=== PATIENT | male | born 1930 | race Caucasian/White ===

== ENCOUNTER 2018-03-15 12:57 | Observation (INO) | payer MEDICARE, OTHER ==
[~2018-03-15] VITALS: Ht 175.3 cm; Wt 60.4 kg
[~2018-03-15 12:57] MED LIST: ALLOPURINOL100 MG PO; ASCORBIC ACID500 MG PO; ASPIRIN EC81 MG PO; CRANBERRY450 M2 PO; HYDROCHLOROTHIA25 MG PO; LEVOFLOXACIN250 MG PO; LEVOTHYROXINE25 MCG PO; LEVOTHYROXINE75 MCG PO; LISINOPRIL20 MG PO; MIRALAX17 GM PO; MIRTAZAPINE30 MG PO; MULTI-DAY VITA1 EACH PO; NORVASC2.5 MG PO; OMEPRAZOLE20 MG PO; PANTOPRAZOLE SO40 MG PO; SEROQUEL25 MG PO; SIMVASTATIN80 MG PO; SODIUM BICARBO650 MG PO; TAMSULOSIN HCL0.4 MG PO
--- NOTE | 2018-03-15 19:47 | NUR ---
89 - admitted to room 110 via stretcher from ed, drowsy but open eyes easily. 1950 - BC from 2 sites obtained and sent to lab. procedure explained, semicooperative. Admission questionaire done by recalling past information as pt is unable to give information and no family is available in room. Pt comfortable. Pt was admitted wearing only attends as family took her clothes home, no hearing aid, dentures or eyeglassesat this time as this items are not with pt at this time. Bed alarm on. High fall risk precautions in place
--- NOTE | 2018-03-15 20:17 | NUR ---
LR 1L IV BOLUS STARTED
--- NOTE | 2018-03-15 20:31 | NUR ---
16 FR F/C INSERTYED. UROJECT USED, PROCEDURE EXPLAINED, PT SEMICOOPERATIVE DUE TO COGNITIVE CHANGES. INMEDIATE RETURN OF YELLOW URINE OBTAINED
--- NOTE | 2018-03-15 21:32 | NUR ---
ASSESSMENT COMPLETE, PT RESPONDS TO TOUCH BUT IS NOT ANSWERING QUESTIONS. OTHERWISE HE LOOKS COMFORTABLE AND RESPIRATIONS ARE EVEN AND NONLABORED. CALL LIGHT IS WITHIN REACH AND PT IS CLOSE.
--- NOTE | 2018-03-15 22:26 | NUR ---
IN ROOM TO ADMINISTER FLAGYL. PT IS RESTING WITH EYES CLOSED, RESPIRATIONS ARE EVEN AND NONLABORED. CALL LIGHT IS WITHIN REACH.
--- NOTE | 2018-03-15 23:04 | NUR ---
CLARIFIED PULSEOX ORDER WITH DR SCHOFIELD, HE SAID CONTINUOUS PULSEOX IS FINE. WILL UPDATE ORDER AND NOTIFIED R.T.
--- NOTE | 2018-03-15 23:21 | NUR ---
PT IS RESTING WITH EYES CLOSED, RESPIRATIONS ARE EVEN AND NONLABORED. CPOX IS IN PLACE. AND CALL LIGHT IS CLOSE.
[2018-03-16] MEDS ORDERED: OXYBUTYNIN CHLOR5 MG PO (00:26)
--- NOTE | 2018-03-16 01:45 | NUR ---
VITALS AND I&OS DONE AND CHARTED. INFORMED NEY MOSES OF LOW B\P CALL LIGHT IN REACH.
--- NOTE | 2018-03-16 01:50 | NUR ---
NOTIFIED DR SCHOFIELD OF PT'S LOW BP WELL I&O. NEW ORDER RECEVIED FOR 500ML BOLUS OF LR.
--- NOTE | 2018-03-16 02:00 | NUR ---
PT IS RESTING WITH EYES CLOSED, RESPIRATIONS ARE EVEN AND NONLABORED. CALL LIGHT IS WITHIN REACH.
--- NOTE | 2018-03-16 02:13 | NUR ---
LR BOLUS STARTED, ORAL CARE PROVIDED. PT OPENED HIS EYES AND MUMBLED SOMETHING, THEN WENT BACK TO SLEEP. CALL LIGHT IS CLOSE.
--- NOTE | 2018-03-16 04:25 | NUR ---
PT IS RESTING WITH EYES CLOSED, RESPIRATIONS ARE EVEN AND NONLABORED ON CPOX.
--- NOTE | 2018-03-16 04:59 | NUR ---
PT SLEPT THROUGH THE NIGH AND HAD A TOTAL OF 2 L OF FLUID THEN MAINTENANCE FLUID OF LR @ 125. URINE OUTPUT COULD BE BETTER. HE IS NPO AT THIS TIME. SUCTION IS SET UP AT BEDSIDE NEEDED. PT DID NOT RESPOND MUCH OTHER THAN TO DISCOMFORT WHILE FOSTER CATH WAS PLACED BUT HE IS OPENING HIS EYES WHEN TOUCHED ON THE ARM AND SPEAKING LOUDLY. NO EMESIS SINCE ADMISSION. SCD'S AND CPOX IN PLACE. PT CAN SHIFT WEIGHT BUT TURN NEEDED.
--- NOTE | 2018-03-16 06:13 | NUR ---
IN ROOM TO ADMINISTER IV ABX. PT IS EVEN MORE RESPONSIVE. HELD HIS HAND FOR LAB DRAW. CALL LIGHT IS CLOSE.
--- NOTE | 2018-03-16 06:52 | NUR ---
PT'S BP REMAINED SOFT AFTER THE BOLUS. LAST BP WAS 98/38 (53). WILL SEND MSG TO DR SCHOFIELD.
--- NOTE | 2018-03-16 07:43 | NUR ---
RECIEVED CRITICAL LAB VALUE FROM JIMMIE IN LAB. HEMOGLOBIN 6.8 FROM [address] SCHOFIELD AT 0742, ADVISED OF LAB VALUE, NO NEW ORDERS. PT RN AND UTILITY SUPERVISOR BOAT AND PLANT AWARE.
--- NOTE | 2018-03-16 08:00 | NUR ---
RECEIVED REPORT AT 0700, FOUND PT IN BED NOT REALLY RESPONDING TO VOICE COMMANDS. PT IS SOMEWHAT RESPONSIVE TO TOUCH. NO NEW CONERNS NOTED AT THAT TIME.
--- NOTE | 2018-03-16 10:00 | NUR ---
URINE OUTPUT STILL REMAINES INADEQUATE. HG WAS 6.8. PER MD SCHOFIELD 1 UNIT OF BLOOD TO BE GIVEN. WAITING FOR FAMILY TO SIGN COSENT. LLL WAS CORASE, ALL OTHER LOABES ARE CLEAR. PT IS BREATHING SHALLOW THOUGH. ABD RUQ,LUQ,LLQ DID NOT HAVE AUDIBLE BOWEL TONES, RLQ HAD AUDIBLE BOWEL TONES. PT ONLY RESPONDS WITH SOUNDS TO PRESSURE. SBP AT THIS TIME IS 102. WILL CONTINUE TO MONITOR.
--- NOTE | 2018-03-16 10:11 | NUR ---
PATIENT SLEEPING. ASSESSMENT DONE BY USING CHART, NURSING AND REPORT FROM SHELTER. PATIENT HAS CHRONIC DEMENTIA AND IS NOT A RELIABLE SOURCE FOR INFORMATION.
--- NOTE | 2018-03-16 10:50 | NUR ---
PT QUAN Mayen ASLEEP, SON IN . REQUESTED INFO OF HOW PT DID THROUGH THE NIGHT. SHARED THIS INFO WITH COMBINATION WELDER APPRENTICE KENN, SHE WILL SHARE INFO WITH SON. SHE IS SCHEDULED TO GIVE BLOOD TO PT. SON WAS PLEASED, EXTENDED A BLESSING, WILL FOLLOW NEEDED
--- NOTE | 2018-03-16 12:00 | NUR ---
BLOOD INFUSION STILL RUNNING. V/S ARE STABLE. NO CHANGES SO FAR.
[2018-03-16] MEDS ORDERED: ZOCOR40 MG PO (13:00)
[2018-03-16] MEDS ORDERED: MILK OF MA400 MG/5 M PO (13:01)
[2018-03-16] MEDS ORDERED: LIDODERM1 EACH TD (13:03)
[2018-03-16] MEDS ORDERED: SYNTHROID25 MCG PO (13:04)
[2018-03-16] MEDS ORDERED: HYDROCHLOROTH12.5 MG PO (13:05)
[2018-03-16] MEDS ORDERED: NEURONTIN300 MG PO (13:06)
[2018-03-16] MEDS ORDERED: FLEET ENEMA133 ML PR (13:08)
[2018-03-16] MEDS ORDERED: DULCOLAX10 MG PR (13:09)
[2018-03-16] MEDS ORDERED: TYLENOL325 MG PO ×2 (13:11)
--- NOTE | 2018-03-16 13:12 | NUR ---
MED REC COMPLETE WITH CELESTE COLEMAN
--- NOTE | 2018-03-16 14:00 | NUR ---
BLOOD ALMOST DONE. NO NEW ISSUES NOTED . PT NOW RESPONDS TO VOICE AND IS ABLE TO UTTER SOME WORDS AT TIMES.
--- NOTE | 2018-03-16 14:00 | NUR ---
PT IS DOING VERY WELL. PT AMBULATED IN HALLWAY X2, PT IS TOLERATING REGULAR DIET, PT IS POSITIVE FOR BOWEL TONES, PT ALSO IS POSITIVE FOR FLATUS. PAIN SEEMS CONTROLLED. PT IS SALINE LOCKED. NO NEW CONCERNS AT THIS TIME.
--- NOTE | 2018-03-16 16:00 | NUR ---
THERE HAS BEEN NO CHANGES FOR THIS PT.
--- NOTE | 2018-03-16 18:03 | NUR ---
PT NEEDED 12 UNIT OF BLOOD CELLS DUE TO A HG OF 6.8. HG NOW IS 8.5. WE WILL CONTINUE TO MONITOR OVER NIGHT. PT AT FIRST WAS NOT REALLY RESPONDING TO VOICE COMMANDS. AT THIS TIME PT IS DOING SO. FAMILY HAS BEEN AT BEDSIDE ALL DAY. LAST V/S WERE BETTER BLOOD PRESSURE KELLY. URINE OUTPUT STILL IS INADEQUATE. WILL CONTINUE TO MONITOR.
--- NOTE | 2018-03-16 19:15 | NUR ---
BEDSIDE REPORT RECEIVED FROM OFFGOING RN. PT RESTING WITH EYES CLOSED, DOES NOT WAKE DURING REPORT. CALL LIGHT WITHIN REACH. BED ALARM ACTIVE. ROOM IN VIEW OF RN STATION.
--- NOTE | 2018-03-16 21:30 | NUR ---
CHARGE NURSE ROUNDING NOTE: AWAKENS EASILY, ASPIRATION AND FALL PRECAUTIONS INPLACE, CONTINUES ON NPO STATUS, MOUTH CARE DONE. F/C PATENT. TURNED, HEEL PROTECTORS, CPOX IN PLACE. BED ALARM ON
--- NOTE | 2018-03-16 22:16 | NUR ---
PT ASSESSMENT COMPLETE. PT UNABLE TO ANSWER QUESTIONS WITH INTELLIGBLE ANSWERS. PT MUMBLES THROUGHOUT ASSESSMENT. PT DOES NOT DISPLAY ANY NONVERBAL INDICATORS OF PAIN. LUNG SOUNDS DIMINISHED/CLEAR THROUGHOUT. SAO2 90% CPOX IN PLACE, RA. NO COUGH NOTED. BT'S ACTIVE. ABD MILDLY DISTENDED. PT DOES NOT DISPLAY ANY NON VERBAL INDICATORS OF ABD TENDERNESS UPON PALPATION. PT HAS NON BLANCHABE AREAS OF REDNESS X 2 TO L BUTTOCK. BARRIER CREAM APPLIED. NEW ATTENDS PLACED. PT REPOSITIONED AND PROPPED WITH PILLOWS. FOSTER CATH DRAINING CLEAR YELLOW URINE. BED ALARM ACTIVE. ROOM IN VIEW OF RN STATION. CALL LIGHT WITHIN REACH.
--- NOTE | 2018-03-17 00:32 | NUR ---
PT RESTING IN BED WITH EYES CLOSED. RESPIRATIONS EVEN AND UNLABORED. SAO2 94%. PT MUMBLING TO HIMSELF. RT MOVED SAO2 MONITOR TO PT FOREHEAD AFTER PT REMOVED PROBE FROM FINGER. ROOM IN VIEW OF RN STATION. BED ALARM ACTIVE. CALL LIGHT WITHIN REACH.
--- NOTE | 2018-03-17 04:10 | NUR ---
PT ASSESSMENT COMPLETE. PT DISORIENTED TO ALL. PT MUMBLING THROUGHOUT ASSESSMENT, BUT SPEECH IS UNINTELLIGBLE. LUNG SOUNDS CLEAR/DIM THROUGHOUT. SAO2 89-94% ON RA. CPOX IN PLACE. NO COUGH NOTED DURING ASSESSMENT. ABDOMEN MILDLY DISTENDED. PT DISPLAYS NO NONVERBAL S/SX OF ABD TENDERNESS UPON PALPATION. BT'S ACTIVE. PT TURNED AND REPOSITIONED WITH PILLOWS. BARRIER CREAM REAPPLIED TO BUTTOCKS. FOSTER CATH DRAINING CLEAR YELLOW URINE. CALL LIGHT WITHIN PT REACH. ROOM IN VIEW OF RN STATION.
--- NOTE | 2018-03-17 04:10 | NUR ---
PATIENT HAS BEEN RESTING WELL WVE BEEN Q2T HIM. CALL LIGHT IN REACH
--- NOTE | 2018-03-17 05:24 | NUR ---
PT RESTING WELL THIS SHIFT. NO NONVERBAL S/SX OF PAIN PRESENT DURING SHIFT. PT MUMBLING DURING ASSESSMENTS, SPEECH IS UNINTELLIGBLE. LUNG SOUNDS HAVE BEEN CLEAR/DIMINISHED. NO COUGH PRESENT. CPOX IN PLACE. RA. RESPIRATIONS SHALLOW. ABD MILDLY DISTENDED. BT'S ACTIVE. NO NONVERBAL S/SX OF ABD TENDERNESS NOTED. FOSTER CATH DRAINING QS YELLOW URINE. NON BLANCHABLE REDNESS PRESENT X 2 TO L BUTTOCK. TURN Q 2. APPLY BARRIER CREAM. ATTENDS IN PLACE. LR @ 125. SIRI, JOSÉEPCARMEN, FLAGYL.
--- NOTE | 2018-03-17 08:00 | NUR ---
RECEIVED REPORT AT 0700, FOUND PT IN BED SLEEPING. A BED BATH TO BE GIVEN TODAY. NO NEW CONCERNS SO FAR.
--- NOTE | 2018-03-17 10:02 | NUR ---
HR IS IN THE UPPER 40'S-MID 50'S. ALL LOBES ARE CLEAR AT THIS TIME. PT IS STILL TAKING VERY SHALLOW BREATHS AT THIS TIME. URINE OUTPUT IS BETTER. PT AT THIS TIME IS ONLY UTTERING SOUNDS AND NOT WORDS. IV SITE IS WDL. O2 SATS 88-92%. NO NEW CONCERNS AT THIS TIME.
--- NOTE | 2018-03-17 12:04 | NUR ---
BED BATH WAS GIVEN AND LININES WERE CHANGED. PT AT THIS TIME IS MORE ALERT, KEEPING HIS EYES OPEN AT A CONTINUES BASIS. FAMILY AT BEDSIDE.
--- NOTE | 2018-03-17 14:00 | NUR ---
ALL LOBES ARE CLEAR BUT DIMINISHED IN THE BASES. PT IS NOW ABLE TO HOLD HIS OWN MOUTH SWAB. PT IS STILL KEEPING HIS EYES OPEN FOR EXTENDED PERIODS OF TIME. ABD SOUNDS ARE PRESENT. PT HAS BEEN TURNED SEVERAL TIMES THIS SHIFT SO FAR. PT IS STILL NOT ABLE TO FOLLOW COMMANDS. NO NEW CONCERNS NOTED AT THIS TIME.
--- NOTE | 2018-03-17 15:43 | NUR ---
THE NURSE AND I GAVE HIM A BED BATH AND CHANGED HIS BED LINENS.
--- NOTE | 2018-03-17 17:12 | NUR ---
THROUGHOUT THE DAY THE PT MENTAL STATUS SEEMED TO IMPROVE SOME. PT AT THIS TIME KEEPS HIS EYES OPEN SPONTANEOUSLY. PT HOWEVER IS STILL NOT ABLE TO FOLLOW COMMANDS. PT OVERALL SEEMS CONTENT. ALL LOBES ARE CLEAR BUT DIMNISHED IN THE BASES. ABD SOUNDS ARE PRESENT. URINE OUTPUT HAS NOT INCREASED THIS SHIFT PROGRESSED. SON IS AT BEDSIDE. NO NEW CONCERNS AT THIS TIME, WILL CONTINUE TO MONITOR.
--- NOTE | 2018-03-17 19:20 | NUR ---
BEDSIDE REPORT RECEIVED FROM OFFGOING RN. PT RESTING IN BED AWAKE. UNABLE TO PARTICIPATE IN REPORT. CALL LIGHT WITHIN REACH. ROOM IN VIEW OF RN STATION.
--- NOTE | 2018-03-17 23:43 | NUR ---
PT RESTING IN BED WITH EYES OPEN. PT DISORIENTED TO ALL. SPEECH REMAINS INCOMPREHENSIBLE. PT CHUCKLES WHEN ASKED IF HE IS HAVING PAIN. NO NON VERBAL S/SX OF PAIN PRESENT. LUNG SOUNDS CLEAR, DIMINISHED IN THE BASES. PT COUGHING INTERMITTENTLY THROUGHOUT ASSESSMENT. BOWEL TONES ACTIVE. FOSTER CATH DRAINING CLEAR YELLOW URINE. ALLEVYN FOAM TO L BUTTOCK, ALLEVYN FOAM TO R UPPER ARM. PT REPOSITIONED AND PROPPED WITH PILLOWS. PT CALL LIGHT WITHIN REACH, ROOM IN VIEW OF RN STATION.
--- NOTE | 2018-03-17 23:50 | NUR ---
V/S AND I&O DONE AND CHARTED. RN ADAMS AND I CLEANED/ CHANGED ATTENDS AND FOSTER CATH CARE DONE. REPOSITIONED PATIENT LYING ON RIGHT SIDE. CALL LIGHT AND SIDE TABLE WITHIN REACH.
--- NOTE | 2018-03-18 03:28 | NUR ---
PT RESTING IN BED WITH EYES OPEN. PT DISORIENTED X 4. MUMBLES WORDS, OCCASIONALLY ONE WORD IS CLEAR. PT CHUCKLES WHEN ASKED QUESTIONS, DOES NOT ANSWER APPROPRIATELY. LUNG SOUNDS CLEAR AT THIS TIME ON RA. NO COUGH NOTED DURING ASSESSMENT. ABD MILDLY DISTENDED, NO S/SX OF ABD TENDERNEESS. FOSTER DRAINING CLEAR YELLOW URINE. ATTENDS IN PLACE. CALL LIGHT WITHIN PT REACH. ROOM IN VIEW OF RN STATION.
--- NOTE | 2018-03-18 04:33 | NUR ---
PT REPOSITIONED AND PROPPED WITH PILLOWS. PT MUMBLING, WITH OCCASIONAL COMPREHENDABLE WORD. CALL LIGHT IN REACH, ROOM IN VIEW OF RN STATION.
--- NOTE | 2018-03-18 06:20 | NUR ---
PT AWAKE OFF AND ON THIS SHIFT. DISORIENTED TO ALL. SPEECH MOSTLY INCOMPREHENSIBLE, ALTHOUGH HAVING PERIODS OF 1-2 WORDS THAT MAKE SENSE. LUNG SOUNDS CLEAR, NO COUGHING NOTED. ABD MILDLY DISTENDED, NO S/SX OF ABD TENDERNESS. FOSTER CATH DRAINING CLEAR YELLOW URINE, QS. NO BM SINCE 03/15/18. ALLEVYN FOAM TO STAGE 1 PRESSURE ULCERS ON L BUTTOCK. ALLEVYN FOAM TO SCABBING ON RUE. LR @ 125. NPO[address] ST CONSULT MONDAY.
--- NOTE | 2018-03-18 09:47 | NUR ---
turned patient to right side with TAMMY Garza. tolerated well. VS taken. stable. ivf pump volume cleared.
--- NOTE | 2018-03-18 11:53 | NUR ---
AT BEDSIDE GAVE INSTRUCTIONS TO MEALS AND PRECAUTIONS ORDERED PLACED PER
--- NOTE | 2018-03-18 13:50 | NUR ---
patient sat up in bed after working with physical therapy. ate 75-90% of meal. no coughing or choking during entire meal. this RN assisted patient with feeding. new IVF bag hung now. magnesium rider infusing now as well.
--- NOTE | 2018-03-18 17:12 | NUR ---
pt resting with eyes closed now. resp rate and rhythm even.
--- NOTE | 2018-03-18 17:51 | NUR ---
dinner arrived at patients bedside, patient did not want to eat the food, he went back to sleep will try again soon
--- NOTE | 2018-03-18 17:54 | NUR ---
ADVANCED DIET TO DYSPHAGIA PUREED WITH NECTAR THICK LIQUIDS. ATE 75% OF LUNCH. TOLERATED WELL. NEEDS TO BE FULLY AWAKE TO EAT. ASPIRATION PERCAUTIONS. 2PA/TURN Q2H. LR @ 125. ZITHROMAX AND ROCEPHIN. FOSTER CATHETER. ALLEVYN ON COCCYX.
--- NOTE | 2018-03-18 19:05 | NUR ---
BEDSIDE REPORT RECEIVED FROM OFFGOING RN. PT RESTING IN BED. CALL LIGHT IN REACH, ROOM IN VIEW OF RN STATION.
--- NOTE | 2018-03-18 22:55 | NUR ---
PT ASSESSMENT COMPLETE. PT DISORIENTED TO ALL. SPEECH IS MUMBLED, UNINTELLIGIBLE. LUNG SOUNDS CLEAR THROUGHOUT. ABD FIRM TO PALPATION NO NONVERBAL S/SX OF ABD TENDERNESS. BT'S ACTIVE. ALLEVYN FOAM TO FERCHOE L BUTTOCK. FOSTER CATH DRAINING CLEAR YELLOW URINE. ATTENDS IN PLACE. PT WITH CALL LIGHT IN REACH, ROOM IN VIEW OF RN STATION.
--- NOTE | 2018-03-18 23:22 | NUR ---
V/S AND I&O DONE AND CHARTED. REPOSITIONED PATIENT. PATIENT HAD A SIP OF THICKENED APPLE JUICE AND THICKENED WATER.
--- NOTE | 2018-03-19 01:30 | NUR ---
PT RESTING IN BED WITH EYES CLOSED. PT APPEARS TO BE SLEEPING. ROOM IN VIEW OF RN STATION. CALL LIGHT WITHIN REACH.
--- NOTE | 2018-03-19 03:30 | NUR ---
PT ASSESSMENT COMPLETE. NO NONVERBAL S/SX OF PAIN PRESENT. PT DISORIENT TO ALL. LUNG SOUNDS CLEAR THROUGHOUT. BT'S ACTIVE. ABD FIRM. NO S/SX OF ABD TENDERNESS. FOSTER DRAINING CLEAR YELLOW URINE. ROOM IN VIEW OF RN STATION. CALL LIGHT WITHIN REACH.
--- NOTE | 2018-03-19 06:41 | NUR ---
GUNJAN ATTEMPTS TO WAKE PT FOR ADMINISTRATION OF THYROID MEDICATION. PT REMAINS DROWSY, DOES NOT OPEN EYES. MEDICATION NOT ADMINISTERED AT THIS TIME DUE TO PT'S INABILITY TO WAKE UP AND TAKE BITE OF APPLE SAUCE. NO S/SX OF DISTRESS NOTED, RESPIRATIONS EVEN AND UNLABORED. ROOM IN VIEW OF RN STATION. CALL LIGHT IN REACH.
--- NOTE | 2018-03-19 09:45 | NUR ---
PT VERY DROWSY THIS AM, DIFFICULT TO AROUSE. PT OPENING EYES BUT FALLS BACK ASLEEP EASILY. NOT ABLE TO RESPOND VERBALLY ALTHOUGH PT REACHED UP AND ATTEMPTED TO PUSH SPOON AWAY WHILE THIS RN TRIED TO ADMINISTER MEDS. PT DID TAKE ALL OF PILLS ONE AT A TIME WITH APPLESAUCE. TOOK ENCOURAGEMENT TO SWALLOW. NO COUGHING NOTED. PT FULL ASSIST WITH THIS RN AND EVA Schaeffer. TO SIT PT UP IN BED AND TRANSFER HIM TO RECLINER. PT SITTING UP IN RECLINER. IV INFUSING WNL. CALL LIGHT WITHIN REACH. FEET ELEVATED, GIVEN WARM BLANKET.
[2018-03-19] MEDS ORDERED: AMLODIPINE BES2.5 MG PO (11:50)
[2018-03-19] MEDS ORDERED: AMOXICILLIN500 MG PO (11:51)
[2018-03-19] MEDS ORDERED: ZOCOR40 MG PO (11:51)
--- NOTE | 2018-03-19 12:04 | NUR ---
SPOKE WITH [facility] TO UPDATE ON PROBABLE DISCHARGE TOMORROW RETURNING TO FACILITY. THEY REQUEST CLINICALS. FAXED CLINICALS TO THEM, FAX CONFIRMATION RECEIVED.
--- NOTE | 2018-03-19 12:15 | NUR ---
PT SITTING UP IN RECLINER. REMAINS FOR DROWSY, DIFFICULT TO AWAKEN. SON AT BEDSIDE STATES HE WOULD ATTEMPT TO ASSIST PT TO EAT LUNCH. CALL LIGHT WITHIN REACH.
--- NOTE | 2018-03-19 12:23 | NUR ---
PATIENT HAS BEEN VERY TIRED TO DAY, UP IN HIS CAHIR, SON IS IN THE ROOM WITH HIM. REFUSED BREAKFAST, sON SAID HE WOULD TRY TO FEED HIM lUNCH, STILL VERY SLEEPY. CALL LIGHT IN REACH.
--- NOTE | 2018-03-19 12:55 | NUR ---
PT ASLEEP IN CHAIR-DIFFICULT TO AROUSE. VISITED WITH SON, HE SHARED WITH ME THAT THIS HAS BEEN A LONG JOURNEY CARING FOR HIS FATHER. "ITS JUST SOMETHING THAT I HAVE TO DO", SON STATED AND DID NOT SHY AWAY FROM CARING FOR HIS DAD. GOT SON SOMETHING TO DRINK-HE THANKED ME AND I EXTENDED A BLESSING. WILL FOLLOW NEEDED
--- NOTE | 2018-03-19 15:16 | NUR ---
NOTED MULTIPLE 30 SEC APNEIC PERIODS WHILE PT SLEEPING. PT AWOKE SLIGHTLY TO GENTLE TOUCH AND VOICE. WOULD NOT OPEN EYES. PT DID RESPOND VERBALLY AT THIS TIME ALTHOUGH VERBAL RESPONSE WAS INCOMPREHENSIBLE. DR. ANDRADE AWARE.
--- NOTE | 2018-03-19 17:41 | NUR ---
Patient was in his chair. took 3 assist to beverley him to bed patient was in cont. call light in reach .
--- NOTE | 2018-03-19 17:45 | NUR ---
PT 3PA WITH JESSE TRANSFER BACK TO BED. REMAINS VERY DROWSY, RESPONDS VERY LITTLE EVEN TO MOVEMENT BACK TO BED. PT INCONTINENT OF URINE. ATTENDS CHANGED ONCE IN BED. PT REFUSES TO TAKE BITES OF FOOD OR DRINKS WHEN OFFERED. TAKING PILLS CRUSHED IN BITES OF APPLESAUCE WITH MUCH ENCOURAGMENT. CURRENTLY IN BED SLEEPING. SON AT BEDSIDE. IV INFUSING WNL.
--- NOTE | 2018-03-19 19:20 | NUR ---
BEDSIDE REPORT RECEIVED FROM OFFGOING RN. PT DOES NOT WAKE DURING REPORT. CALL LIGHT IN REACH. ROOM IN VIEW OF RN STATION.
--- NOTE | 2018-03-19 21:28 | NUR ---
PT ASSESSMENT COMPLETE. PT RESTING IN BED WITH EYES CLOSED. PT RESPONDS UNTILLEGIBLY TO NAME BEING CALLED, BUT DOES NOT OPEN HIS EYES WHEN PROMTED. PT REMAINS DROWSY THROUGHOUT THE ASSESSMENT. NO NONVERBAL S/SX OF PAIN PRESENT. LUNG SOUNDS CLEAR THROUGHOUT. BT'S ACTIVE. ABD FIRM TO PALPATION. NO S/SX OF ABD TENDERNESS PRESENT. ALLEVYN FOAM TO R UPPER ARM AND TO L BUTTOCK. ATTENDS IN PLACE FOR INCONTINENCE. ROOM IN VIEW OF RN STATION, CALL LIGHT IN REACH.
--- NOTE | 2018-03-20 00:30 | NUR ---
PT RESTING IN BED WITH EYES CLOSED. RESPIRATIONS EVEN AND UNLABORED. PT DOES NOT WAKE WHILE INDUSTRIAL SALES MANAGER IN ROOM. PT APPEARS TO BE SLEEPING. CALL LIGHT IN REACH, ROOM IN VIEW OF RN STATION.
--- NOTE | 2018-03-20 01:10 | NUR ---
2 PA CHANGED SOAKED ATTENDS AND REPOSITIONED.
--- NOTE | 2018-03-20 03:00 | NUR ---
PT ASSESSMENT COMPLETE. PT DOES NOT WAKE DURING ASSESSMENT. PT MUMBLES SLIGHTLY WHEN ASKED QUESTIONS BUT NEVER OPENS HIS EYES. NO NONVERBAL S/SX OF PAIN PRESENT. BT'S ACTIVE. ABD FIRM. NO S/SX OF ABD TENDERNESS. ALLEVYN FOAM TO L BUTTOCK AND R UPPER ARM. PT'S FORESKIN NOTED TO BE INFLAMED, WILL NOT RETRACT OVER THE HEAD OF THE PENIS. ATTENDS IN PLACE FOR INCONTINENCE, CHANGED AT THIS TIME. PT REPOSITIONED WITH PILLOWS. CALL LIGHT IN REACH. ROOMIN VIEW OF RN STATION.
--- NOTE | 2018-03-20 06:12 | NUR ---
PT OBTUNDED THROUGHOUT SHIFT. BRIEFLY MUMBLES INCOMPREHENSIBLE SPEECH WHEN ASKED QUESTIONS, UNABLE TO OPEN EYES. NO S/SX OF PAIN. BT'S ACTIVE. ABD FIRM TO TOUCH. ATTENDS IN PLACE FOR INCONTINENCE. TURN Q 2. ALLEVYN FOAM TO L BUTTOCK AND R UPPER ARM. FORESKIN NOTED TO BE RETRACTED, SWOLLEN. UNABLE TO REPLACE FORESKIN TO PROPER POSITION. LR @ 125. DYSPHAGIA-PUREED DIET WITH NECTAR THICK LIQUIDS. ST EVAL YESTERDAY. 2PA FOR BED MOBILITY.
--- NOTE | 2018-03-20 06:35 | NUR ---
scheduled levothyroid adminsitered. pt noted to be more alert than was throught the night. pt eyes are open. pt mumbles and chuckles in response to questions as was his previous response. call light in reach. room in view of rn station.
--- NOTE | 2018-03-20 11:32 | NUR ---
report called to nurse at [facility]. questions answered.
--- NOTE | 2018-03-20 11:47 | NUR ---
PT'S SON IN RM. PT ASLEEP, HAD GOOD VISIT WITH SON. HE IS PREPARING TO TAKE PT BACK TO [facility]. HE DOESN'T SEE ANY CHANGE FROM YESTERDAY. HE SAID, "I GUESS HE CAN SLEEP WELL THERE HE IS HERE." HE THANKED ME FOR COMING IN, EXTENDED A BLESSING AND WILL FOLLOW NEEDED
== END 2018-03-20 11:05 ==
LOC: ED 12:57 → MS 12:58
PROVIDERS: ADMIT Student in an Organized Health Care Education/Training Program
DX: K55.049 Acute infarction of large intestine, extent unspecified (principal); J18.9 Pneumonia, unspecified organism; N17.9 Acute kidney failure, unspecified; D62 Acute posthemorrhagic anemia; F03.90 Unspecified dementia, unspecified severity, without behavioral disturbance, psychotic disturbance, mood disturbance, and anxiety; E78.5 Hyperlipidemia, unspecified; I25.2 Old myocardial infarction; E03.9 Hypothyroidism, unspecified; I12.9 Hypertensive chronic kidney disease with stage 1 through stage 4 chronic kidney disease, or unspecified chronic kidney disease; N18.3 Chronic kidney disease, stage 3 (moderate); R39.15 Urgency of urination; R13.12 Dysphagia, oropharyngeal phase; N40.1 Benign prostatic hyperplasia with lower urinary tract symptoms; G89.4 Chronic pain syndrome; K64.9 Unspecified hemorrhoids; E79.0 Hyperuricemia without signs of inflammatory arthritis and tophaceous disease; H54.7 Unspecified visual loss; H91.90 Unspecified hearing loss, unspecified ear; Z66 Do not resuscitate; Z87.891 Personal history of nicotine dependence; Z86.73 Personal history of transient ischemic attack (TIA), and cerebral infarction without residual deficits; Z79.899 Other long term (current) drug therapy; Z88.8 Allergy status to other drugs, medicaments and biological substances
CPT/HCPCS: 36415; 36430; 71045; 74176; 80048; 80053; 80202; 81001; 83690; 83735; 84100; 85025; 86850; 86900; 86901; 86920; 87040; 92610; 94762; 96361; 96365; 96366; 96367; 96368; 96372; 96375; 96376; 97110; 97163; 97530; 99285-25; C9113; G0378; J0131; J0456; J0692; J0696; J1650; J2405; J3370; J3475; J3480; J7040; J7060; J7120; P9016

== ENCOUNTER 2018-04-27 05:14 | Observation (INO) | payer MEDICARE, OTHER ==
[~2018-04-27] VITALS: Ht 175.3 cm; Wt 60.1 kg
[~2018-04-27 05:14] MED LIST changes: +AMLODIPINE BES2.5 MG PO; +AMOXICILLIN500 MG PO; +DULCOLAX10 MG PR; +FLEET ENEMA133 ML PR; +HYDROCHLOROTH12.5 MG PO; +LIDODERM1 EACH TD; +MILK OF MA400 MG/5 M PO; +NEURONTIN300 MG PO; +OXYBUTYNIN CHLOR5 MG PO; +SYNTHROID25 MCG PO; +TYLENOL325 MG PO; +ZOCOR40 MG PO
--- NOTE | 2018-04-27 10:00 | NUR ---
PT ARRIVED TO FLOOR AT 0935, TRANSFERED TO HOSPITAL BED. PT VERY TETLIN, DIFFICULT TO ASSESS. PT LUNG SOUNDS WITH CRACKLES THROUGHOUT, OCCASIONAL COUGH. BOWEL TONES ACTIVE, ABD DISTENDED AND FIRM, FLEET ENEMA GIVEN. PULSES PALPABLE, EXTREMITIES WARM. PT COMBATIVE WITH CARES. PT WITH LARGE BM, PERICARE PERFORMED. BED ALARM ON. IV FLUIDS INFUSING.
[2018-04-27] MEDS ORDERED: GABAPENTIN100 MG PO (12:36)
--- NOTE | 2018-04-27 12:40 | NUR ---
PT WITH MEDIUM BM, PERICARE PERFORMED. LUNCH AT BEDSIDE, FEEDER, ATE ABOUT 25%, NO S/S OF ASPIRATION. IV FLUIDS INFUSING. BED ALARM ON.
[2018-04-27] MEDS ORDERED: IPRAT-ALBUT 0.5-3 ML INH (12:43)
--- NOTE | 2018-04-27 12:52 | NUR ---
MED REC COMPLETE WITH CELESTE COLEMAN
--- NOTE | 2018-04-27 13:39 | NUR ---
PATIENT HAS SEVERE DEMENTIA AND DOES NOT ANSWER QUESTIONS. ASSESSMENT THROUGH STAFF, [place] STAFF AND CALLED AND SPOKE WITH SON CARLO QUINONES [phone]. PATIENT WILL BE RETURNING TO FACILITY AT DISCHARGE.
--- NOTE | 2018-04-27 14:00 | NUR ---
PT RESTINGI N BED. PT ON ROOM AIR, LUNG SOUNDS COARSE. IV FLUIDS INFUSING LR AT 200 ML/HR. PT WITH SMALL APPETITE, ATE 25%, REQUIRES ASSISTANCE WITH EATING. NO ACUTE CHANGES. BED ALARM ON.
--- NOTE | 2018-04-27 15:16 | NUR ---
PT WITH SMALL AMOUNT OF LIQUID STOOL. DIGITALLY DISEMPACTED, MEDIUM SIZE OF FORMED STOOL REMOVED. FLEET ENEMA GIVEN PER ORDER. PT RESTING IN BED, BED ALARM ON.
--- NOTE | 2018-04-27 17:03 | EKG ---
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 rate has increased BY 44 BPM Nonspecific T wave abnormality no longer evident in Inferior leads T wave inversion less evident in Lateral leads Confirmed by BELLA SCHOFIELD DO ([id number]) on 04/27/2018 5:02:58 PM Electronically Signed By: BELLA SCHOFIELD DO 04/27/18 1703 PATIENT NAME: PIERRE QUINONES Electrocardiogram DATE OF : [birth year] PHYSICIAN: BELLA SCHOFIELD DO REPORT #: [id number] REPORT IS CONFIDENTIAL AND NOT TO BE RELEASED WITHOUT AUTHORIZATION
--- NOTE | 2018-04-27 18:02 | NUR ---
PT RECEIVED FROM ED THIS AFTERNOON FOR HEMATEMESIS AND CONSTIPATION. PT CONFUSED, BLIND AND [place]. PT ON ROOM AIR, LUNG SOUNDS WITH RHONCHI IMPROVED TO COARSE. PT RECEIVED 2 FLEET ENEMAS, DISEMPACTION, CONTINUES TO HAVE STOOL, INCONTINENT OF URINE. PT IS A FEEDER, SOFT REGULAR DIET, ASPIRATION PRECAUTIONS. IV FLUIDS INFUSING LR AT 125 ML/HR. PT/OT, WAS UNABLE TO STAND, JESSE LIFT.
--- NOTE | 2018-04-27 18:44 | NUR ---
BISACODYL SUPPOSITORY GIVEN PER ORDER, PERICARE PERFORMED, BARRIER CREAM APPLIED FOR REDDENED SCROTUM. PT ASSISTED TO EAT DINNER, ATE 25%. BED ALARM IN PLACE.
--- NOTE | 2018-04-27 21:06 | NUR ---
ENTERED PT ROOM NOTED iv RT HAND PT. REMOVED ACESS. LUNG SOUND CRACKELS IN BASES. BED CHANGE COMPLETE.
--- NOTE | 2018-04-27 22:17 | NUR ---
DIESEL CRANE OPERATOR ROUNDING NOTE. PT RESTING IN BED FIDGETING WITH BLANKET. DENIES NEEDS AT THIS TIME. CALL LIGHT IN REACH.
--- NOTE | 2018-04-27 23:02 | NUR ---
patient was changed and repositioned in bed with the help of RN Suzie.
--- NOTE | 2018-04-27 23:10 | NUR ---
PT RESTING IN BED WITH EYES CLOSED. NO SIGNS OF DISTRESS OBSERVED. CALL LIGHT IN REACH. ROOM CLOSE TO RN JOVON. RE POISTIONED SLIGHTLY FOR COMFORT.
--- NOTE | 2018-04-28 01:30 | NUR ---
TURNED, COOPERATIVE, VERBAL INSTRUCTIONS GIVEN, PT IS [place] AND BLIND.
--- NOTE | 2018-04-28 04:48 | NUR ---
PT HARD OF HEARING AND LEGALLY BLIND. PT ABLE TO REST WELL THIS SHIFT. PT ON RA. LUNG SOUNDS COARSE AND CRACKLES, WITH WET NON-PRODUCTIVE COUGH. PT IS A FEEDER AND ON SOFT REGULAR DIET WITH ASPIRATIONS PRECAUTIONS.
--- NOTE | 2018-04-28 06:01 | NUR ---
PT HAS BEEN TURNED Q2H, INCONTINENT OF URINE X1 AND SOFT BROWN BM'S X2, RED DANG AREA, AND SCROTUM AREA, BARRIER CREAM APPLIED. TEMP HAS BEEN 99 EVEN WITH TURNING AND LIGHT COVERS ON. UNABLE TO UNDERSTAND INSTRUCTIONS DUE TO COGNITIVE DEFICIENCIES. MOIST NON PRODUCTIVE COUGH PRESENT. ON ROOM AIR. ASPIRATION AND HIGH RISK FALL PRECAUTIONS IN PLACE. PT TOOK MEDS IN APPLESAUCE AND HAS TOLERATED SMALL AMOUNTS OF LIQUIDS. ALL PROCEDURES EXPLAINED, PT COOPERATIVE.
--- NOTE | 2018-04-28 07:05 | NUR ---
BEDSIDE HANDOFF REPORT RECEIVED FROM GLUE DRIER OPERATOR RN. PT SLEEPING, LEFT UNDISTURBED, BED ALARM ON.
--- NOTE | 2018-04-28 09:30 | NUR ---
PT RESTING IN BED, PT LUNG SOUNDS CLEAR, ON ROOM AIR. BOWEL TONES ACTIVE, ABD FIRM, LESS DISTENTION FROM YESTERDAY. PT TOLERATING DIET, WITHOUT EMESIS/VOMITING. IV INFUSING LR AT 125 ML/HR TO LEFT FOREARM. PT WIHTOUR EMEMA. RIGHT ARM AND LEG STIFF AND WEAK, LEFT HAND WITH GOOD STRENGTH, PULSES PALPABLE, ALL EXTREMITIES WARM. PT BATHED, PERICARE PERFORMED, SMALL BM, BARRIER CREAM APPLIED, ALLEVYN APPLIED TO COCCYX REDNESS. PT TOOK MORNING MEDICATIONS CRUSHED WITH YOGURT. PT DEPENDENT FOR ALL CARES. BED ALARM IN PLACE.
--- NOTE | 2018-04-28 11:31 | NUR ---
THIS MORNING THE NURSE AND I CHANGED HIS BED LINENS AND ALSO GAVE HIM A BED BATH. ALSO I FED HIM HIS BREAKFAST THIS MORNING.
--- NOTE | 2018-04-28 14:30 | NUR ---
THE NURSE AND I CHANGE HIM ALSO TURNED HIM. SONS CAME TO VISIT.
--- NOTE | 2018-04-28 14:45 | NUR ---
PT RESTING IN BED, SON AT BEDSIDE. PERICARE PERFORMED, BM SMEAR AND INCONTINENT OF URINE. PT REPOSITIONED TO RIGHT SIDE. LUNG SOUNDS CLEAR WITH OCCASIONAL COUGH. NO ACUTE CHANGES. PT ASSITED TO EAT LUNCH. FAMILY DENIES OTHER NEEDS AT THIS TIME.
--- NOTE | 2018-04-28 17:45 | NUR ---
JOSEARE COMPLETED, PT JESSE LIFTED TO CHAIR. LINENS CHANGED. PT ASSSITED TO EAT DINNER, GOOD APPETITE THIS EVENING.
--- NOTE | 2018-04-28 18:09 | NUR ---
PT ON ROOM AIR, LUNG SOUNDS CLEAR, OCCASIONAL LOOSE COUGH, ASPIRATION PRECAUTIONS. TOLERATING REGULAR SOFT DIET, FEEDER, APPETITE IMPROVING. JESSE LIFT TO CHAIR, PT/OT. IV FLUIDS DECREASE TO 75 ML/HR. PT RECEIVED SUPPOSITORY, LOOSE BM THROUGHOUT THE DAY, INCONTINENT OF URINE.
--- NOTE | 2018-04-28 19:20 | NUR ---
PT. ROUNDING IN ROOM. NO SIGNS OF DISTRESS. HYOER TRANSFER FROM CHAIR TO BED. PT CLEAN NO NEED FOR CHANGE AT THIS TIME. CALL LIGHT IN REACH.
--- NOTE | 2018-04-28 22:00 | NUR ---
HANDKERCHIEF PRESSER ROUNDING NOTE. PT RESTING IN BED WITH EYES CLOSED. ROOM IN VIEW OF RN STATION WITH CURTAIN OPEN.
--- NOTE | 2018-04-28 23:23 | NUR ---
PT TURNED TO L SIDE, INCONTINENT OF BM AND URINE, SKIN CARE DONE, CLEAN ATTENDS IN PLACE, BARRIER CREAM TO DANG AREA APPLIED. PROCEDURE EXPLAINED, SEMICOOPERATIVE
--- NOTE | 2018-04-29 00:54 | NUR ---
pt in bed restign with eyes closed. no signs of distress turn/ adjusted poistion for comfort. atteneds dry. IV intacr and running @75ml. call light in reach.
--- NOTE | 2018-04-29 04:56 | NUR ---
PT ON RA. RESTED WELL ALL NIGHT. NO BM ON SHIFT.
--- NOTE | 2018-04-29 07:06 | NUR ---
ON ROOM AIR, CONTINUES TO HAVE MOIST NONPRODUCTIVE COUGH, HOB ELEVATED, ASPIRATION AND FALL PRECAUTIONS INPLACE. WAS INCONTINENT OF BOWEL AND BLADDER, CHANGED, DANG CARE DONE, BARRIER CREAM APPLIED, COCCYX AREA ALLEVYN DRESSING CHANGED. PROCEDURE EXPLAINED, NOT VERY COOPERATIVE. IVF INFUSING
--- NOTE | 2018-04-29 07:59 | NUR ---
PATIENT RESTING IN BED. PATIENT'S BREAKFAST ORDERED
--- NOTE | 2018-04-29 08:31 | NUR ---
PATIENT FED BREAKFAST, HAS POOR APPETITE, ATE 10% OF BREAKFAST. SERUM MG LEVEL IS 1.5 PLAN TO REVIEW THIS WITH HOSPITALIST.
--- NOTE | 2018-04-29 08:39 | NUR ---
PATIENT SITTING UP IN BED. PATIENT FED. CALL LIGHT WITHIN REACH. NO OTHER NEEDS AT THIS TIME
--- NOTE | 2018-04-29 09:00 | NUR ---
PATIENT RESTING IN BED. PATIENT'S ATTEND CHANGED. TWO PERSON ASSISTING. VITAL SIGNS AND I&O DONE. CALL LIGHT WITHIN REACH. NO OTHER NEEDS AT THIS TIME
--- NOTE | 2018-04-29 09:21 | NUR ---
REPORTED 1.5 MAGNESIUM LEVEL TO CHARGE NURSE BEFORE MORNING MEETING. HAS CURRENT MAG RIDER INFUSING.
--- NOTE | 2018-04-29 09:34 | NUR ---
MORNING ASSESSMENT DONE. PATIENT HAS NOTABLE COUGH THIS MORNING. PATIENT TOOK CRUSHED MEDS WELL WITH APPLESAUCE. SUPPOSITORY PLACED, BM IS VERY HIGH IN RECTUM AND COULD NOT BE DIGITALLY REACHED. PATIENT TOLERATED WELL, TURNED TO RIGHT SIDE.
--- NOTE | 2018-04-29 10:57 | NUR ---
PATIENT RESTING IN BED. PATIEN'S ATTEND CHANGED. TWO PERSON ASSISTING. FINAL VITAL SIGNS WERE OBTAIDED PRIOR TO DISCHARGE FROM THE UNIT.
[2018-04-29] MEDS ORDERED: POLYETHYLENE GL17 GM PO (11:00)
[2018-04-29] MEDS ORDERED: SENOKOT8.6 MG PO (11:00)
[2018-04-29] MEDS ORDERED: DULCOLAX10 MG PR (11:02)
--- NOTE | 2018-04-29 11:59 | NUR ---
REPORT CALLED TO VERÓNICA AT T.
== END 2018-04-29 11:45 ==
LOC: ED 05:14 → MS 05:16
PROVIDERS: ADMIT Student in an Organized Health Care Education/Training Program
DX: K59.00 Constipation, unspecified (principal); D72.829 Elevated white blood cell count, unspecified; F03.90 Unspecified dementia, unspecified severity, without behavioral disturbance, psychotic disturbance, mood disturbance, and anxiety; H91.90 Unspecified hearing loss, unspecified ear; N40.0 Benign prostatic hyperplasia without lower urinary tract symptoms; M10.9 Gout, unspecified; K64.9 Unspecified hemorrhoids; I10 Essential (primary) hypertension; H54.7 Unspecified visual loss; E03.9 Hypothyroidism, unspecified; I25.2 Old myocardial infarction; Z79.899 Other long term (current) drug therapy; Z88.5 Allergy status to narcotic agent; Z66 Do not resuscitate; Z87.891 Personal history of nicotine dependence; Z86.73 Personal history of transient ischemic attack (TIA), and cerebral infarction without residual deficits
CPT/HCPCS: 36415; 51701; 71045; 74176; 80048; 80053; 81001; 83605; 83690; 83735; 84439; 84443; 85025; 85610; 85730; 86850; 86900; 86901; 87040; 93005; 93010; 96368; 96375; 96376; 97163; 97167; 99285-25; C9113; G0378; J0692; J3475; J7030; J7060; J7120

== ENCOUNTER 2018-06-27 04:20 | Inpatient (IN) | payer MEDICARE, OTHER ==
[~2018-06-27] VITALS: Ht 175.3 cm; Wt 62.0 kg
[~2018-06-27 04:20] MED LIST changes: +GABAPENTIN100 MG PO; +IPRAT-ALBUT 0.5-3 ML INH; +MULTI-DAY PLUS1 EAC1 PO; -MULTI-DAY VITA1 EACH PO; +POLYETHYLENE GL17 GM PO; +SENOKOT8.6 MG PO
[2018-06-27] MEDS ORDERED: MILK OF MA400 MG/5 M PO (04:48)
[2018-06-27] MEDS ORDERED: LEVOTHYROXINE75 MCG PO (04:49)
[2018-06-27] MEDS ORDERED: LACTULOSE10 GM/15 M PO (04:49)
[2018-06-27] MEDS ORDERED: SENOKOTXTRA17.2 MG PO (04:52)
[2018-06-27] MEDS ORDERED: SIMVASTATIN20 MG PO (04:52)
[2018-06-27] MEDS ORDERED: FLOMAX0.4 MG PO (04:53)
[2018-06-27] MEDS ORDERED: GABAPENTIN100 MG PO (04:54)
[2018-06-27] MEDS ORDERED: MAGNESIUM CITR296 ML PO (04:55)
[2018-06-27] MEDS ORDERED: ENEMA133 M1 PR (04:56)
--- NOTE | 2018-06-27 08:19 | NUR ---
REPEAT LACTIC ACID LEVEL DRAWN FROM LEFT FOREARM IV SITE WITHOUT DIFFICULTY. PATIENT'S SON CARLO AND ALFREDO HERE AND ABLE TO ANSWER QUESTIONS. DR. SCHOFIELD HERE TO SEE PATIENT.
--- NOTE | 2018-06-27 08:44 | NUR ---
KUB COMPLETE AT THIS TIME. PT REPOSITIONED TO LEFT SIDE AND POSITIONED WITH PILLOWS. SKIN TEAR COVERED ON RIGHT INNER ELBOW AREA AND OLD SKIN TEAR RE COVERED UNDER BP CUFF. IVF CONTINUE AT 200 ML/HR. CONTINUE TO MONITOR.
--- NOTE | 2018-06-27 09:13 | NUR ---
OXYGEN LEVELS TURNED FOM 4 L OXYMASK UP TO 6 L DUE TO DESATURATION. PT REPOSITIONED ONTO RIGHT SIDE AND ASKED TO COUGH, BUT PATIENT UNABLE TO FOLLOW COMMANDS AT THIS TIME. ORAL CARE PROVIDED AGAIN, AND STILL CLEANING OUT DARK BROWN MUCOUS LIKE MATERIAL IN HIS MOUTH. PT DOES HAVE INTACT GAG REFLEX WHEN SUCTIONING BACK OF THROAT. SP02 NOW 92% ON 6 L. MONITORING URINE HOURLY. PT'S SON CARLO REMAINS IN ROOM AND VERY ATTENTIVE TO PATIENT. CORE TEMP IS 100.5 PER FOSTER CATH AT THIS TIME. CONTINUE TO MONITOR.
--- NOTE | 2018-06-27 09:34 | NUR ---
DR. SCHOFIELD IN ROOM AT THIS TIME. RT IN ROOM WELL. PT'S SP02 CONTINUES TO DROP. PT RECEIVING NEB TX AT THSI TIME AND NOW ON A NON REBREATHER WITH SP02 OF 88%.
--- NOTE | 2018-06-27 09:35 | NUR ---
REPEAT LACTIC LEVEL IS 3.6. 1 L LR BOLUS ORDERED PER DR. SCHOFIELD.
--- NOTE | 2018-06-27 09:39 | NUR ---
PATIENT RECEIVING NT SUCTIONING PER RT. PATIENT HAS COPIOUS AMOUNTS OF DARK SPUTUM COMING UP WITH THIS SUCTIONING. BOLUS STARTED INTO LEFT FOREARM IV SITE.
--- NOTE | 2018-06-27 09:44 | NUR ---
DR. SCHOFIELD TALKING WITH PT'S SONS REGARDING ADVANCED DIRECTIVES AND FURTHER TREATMENT OPTIONS. PATIENT REMAINS ON NONREBREATHER AT 15 L WITH SP02 99%. CONTINUE TO MONITOR.
--- NOTE | 2018-06-27 11:06 | NUR ---
RT BACK IN ROOM TO PERFORM NT SUCTIONING AGAIN AT THIS TIME. MORE COPIOUS BROWNISH TINGED SPUTUM SUCTIONED OUT. SP02 HAS BEEN DROPPING AGAIN DOWN TO 86% WHILE ON 13 L NON REBREATHER. BOLUS FINISHED.
--- NOTE | 2018-06-27 11:37 | NUR ---
PATIENT'S GRANDDAUGHTER AND GRANDSON ARRIVE AND HAVE MULTIPLE QUESTIONS REGARDING PATIENT'S CURRENT PLAN OF CARE AND TREATMENT MOVING FORWARD.
--- NOTE | 2018-06-27 12:27 | NUR ---
PATIENT RECEIVED SUPPOSITORY. FECAL IMPACTION NOTED. SOME STOOL REMOVED. GUIAC PERFORMED, TRACE BORDERLINE POSITIVE. PATIENTS BROTHER IN ROOM. ASSESSMENT COMPLETE.
--- NOTE | 2018-06-27 13:02 | NUR ---
DR. SCHOFIELD NOTIFIED BY THIS RN AT THIS TIME OF CRITICAL [facility] LAB OF 5.4- HE'S AWARE AND EN ROUTE TO BEDSIDE
--- NOTE | 2018-06-27 13:13 | NUR ---
RT AT BEDSIDE TO SUCTION PT
--- NOTE | 2018-06-27 13:18 | NUR ---
NT SUCTION COMPLETED BY RT; PT'S BP HAS IMPROVED; OXYGENATION 100% ON NONREBREATHER SO PT IS SWITCHED TO 8 L/MIN O2 VIA OXYMASK. 500 ML BOLUS RUNNING AT THIS TIME. WILL CONTINUE TO CLOSELY MONITOR.
--- NOTE | 2018-06-27 14:04 | NUR ---
MET WITH PT'S SONS. THEY KEEP CLOSE WATCH ON PT'S CARE. FEEL HE MAY HAVE ASPIRATED VOMIT THAT HAS CAUSED HIS PNEUMONIA AND THIS HOSPITALIZATION. BOTH SEEM POSITIVE AND ARE READY TO MAKE WHATEVER DECISIONS FOR PT'S CARE. EXTENDED A BLESSING, WILL FOLLOW NEEDED
--- NOTE | 2018-06-27 14:11 | NUR ---
DR. SCHOFIELD IN ROOM WITH PATIENT AND FAMILY DISCUSSING COURSE OF TREATMENT. PATIENT REPOSITIONED AND SLIGHT FECAL INCONTINENCE NOTED. PATIENT CLEANED AND NEW CHUX PLACED. PATIENTS SON IN ROOM SITTING NEXT TO BED.
--- NOTE | 2018-06-27 15:58 | EKG ---
[facility] [address] [place] [address] Signed Sinus tachycardia with occasional premature ventricular complexes ST \T\ T wave abnormality, consider lateral ischemia Abnormal ECG When compared with ECG of 27-APR-2018 05:23, premature ventricular complexes are now present Criteria for Septal infarct are no longer present ST now depressed in Inferior leads ST elevation now present in Anterior leads Nonspecific T wave abnormality now evident in Inferior leads T wave inversion less evident in Lateral leads Confirmed by BELLA SCHOFIELD DO ([id number]) on 06/27/2018 3:58:05 PM Electronically Signed By: BELLA SCHOFIELD DO 06/27/18 1558 PATIENT NAME: PIERRE QUINONES Electrocardiogram DATE OF : [birth year] PHYSICIAN: BELLA SCHOFIELD DO REPORT #: [id number] REPORT IS CONFIDENTIAL AND NOT TO BE RELEASED WITHOUT AUTHORIZATION
--- NOTE | 2018-06-27 16:00 | NUR ---
FAMILY IN ROOM WITH PATIENT, SITTING AT BEDSIDE. PATIENT REPOSITIONED IN BED. WILL CONTINUE TO MONITOR HIS BLOOD PRESSURE, URINE OUTPUT, AND KEEP PATIENT COMFORTABLE.
[2018-06-27] MEDS ORDERED: TYLENOL325 MG PO (16:47)
--- NOTE | 2018-06-27 16:56 | NUR ---
Medications reconciled using MARS from facility
--- NOTE | 2018-06-27 18:09 | NUR ---
PATIENT FAMILY IN ROOM SITTING AT PATIENTS BEDSIDE. PATIENT REPOSITIONED IN BED. 650 MG OF PRN TYLENOL GIVEN DUE TO TEMPERATURE OF 101 DEGREES F AND PATIENTS LEGS BILATERALLY ARE WARM TO THE TOUCH. WILL CONTINUE TO MONITOR.
--- NOTE | 2018-06-27 19:43 | NUR ---
REPORT RC'D FROM STUDENT NURSE STEVE AND DAY SHIFT NURSE SUSANA. REPORTS HYPOTENSION, SLIGHTLY ELEVATED TEMP, DECREASED URINE OUTPUT, AND 6L OXYMASK. PT RESTING IN BED AT THIS TIME WITH FAMILY AT BEDSIDE.
--- NOTE | 2018-06-27 20:00 | NUR ---
PT ABLE TO FOLLOW SIMPLE COMMAND OF SQUEEZING HAND, UNABLE TO ANSWER OIENTATION QUESTIONS, DOES NOT OPEN EYES. SINUS RHYTHM WITH PVC ON MONITOR, HR 80'S, +1 EDEMA TO CHEST, PERPHERIAL PULSES +2 BILATERALLY. RESPIATIONS SHALLOW, CLEAR IN BUL, COURSE TO BLL, OCCANSIONAL NONPRODUCTIVE COUGH, 6L OXYMASK. ABD MILDLY DISTENDED, BOWEL TONES ACTIVE X4, SMALL BROWN SMEAR BM. HOULRY URINE OUTPUT FOR DECREASED OUTPUT, FOSTER TEMP PROB DRAINING YELLOW URINE, CATH CARE COMPLETED. SKIN APPEARS FRAGILE, BRUSING AND PETECHIAE NOTED, SKIN TEARS TO RIGHT ARM WNL, COCCYX REDDENED BUT BLANCHABLE. IV SITES FLUSHED, PATENT, WNL, INFUSING LR @ 125 ML/HR.
--- NOTE | 2018-06-27 22:00 | NUR ---
URINE OUTPUT 12 MLS. 500 ML LR BOLUS COMPLETED. PT REPOSITIONED TO RIGHT SIDE. OXYGEN SATURATION 100% ON 6L OXYMASK, ITRATED TO 5L AT THIS TIME.
--- NOTE | 2018-06-27 22:30 | NUR ---
VERBAL ORDER RC'D FROM DR. SCHOFIELD FOR ONE TIME 500 ML LR BOLUS.
--- NOTE | 2018-06-27 22:30 | NUR ---
OXYGEN SATURATION REMAINS 100% ON 5L OXYMASK. OXYGEN TITRATED TO 4L AT THIS TIME.
--- NOTE | 2018-06-27 23:06 | NUR ---
HOULRY URINE OUTPUT INCREASED TO 28 ML/HR. PT OXYGEN SATURATION REMAINS 98% ON 4L, OXYGEN TITRATED TO 3L AT THIS TIME.
--- NOTE | 2018-06-28 00:28 | NUR ---
MENTAL STATUS UNCHANGED. SINUS RHYTHM WIH PCV, HR 80'S. LUNGS IMPROVED AND CLEAR THROUGHOUT, OXYGEN TITRATED TO 2L, SATURATION 98%. TYLENOL SUPPOSITORY PLACED, LARGE AMOUNT OF FIRM STOOL NOTED UPON PLACEMENT. LARGE AMOUNT OF FIRM BROWN STOOL DIGITALLY DISIMPACTED, SUPPOSITORY NOT NOTED IN REMOVED STOOL, HOWEVER UNCERTAIN IF SUPPOSITORY REMAINS IN PLACE. WILL COTNINUE TO MONITOR TEMP AND PAIN.
--- NOTE | 2018-06-28 01:00 | NUR ---
99% ON 2L OXYMASK, OXYGEN TITRATED TO 1L AT THIS TIME.
--- NOTE | 2018-06-28 02:00 | NUR ---
PT REPOSITIONED TO LEFT SIDE. NO BM NOTED. PT ON ROOM AIR AT THIS TIME, OXYGEN SATURATION 97%.
--- NOTE | 2018-06-28 03:09 | NUR ---
PT OPENING EYES SPONTANEOUSLY TO SOUND, REMAINS NONVERBAL. OXYGEN SATURATION 93% ON ROOM AIR. TEMP NOW 99.8 F PER DUSTIN TEM PROB.
--- NOTE | 2018-06-28 04:21 | NUR ---
PT REMAINS ON ROOM AIR WITH SPO2 OF 97%. RHNCHI IN RUL, CLEAR IN ALL OTHER HALL. ABD LESS DISTENDED. NO EDEMA NOTED TO CHEST. TEMP 99.7 F PER FOSTER PROB. URINE OUPUT 36 ML/HR.
--- NOTE | 2018-06-28 06:40 | NUR ---
PT RESTED FOR MOST OF NIGHT. PT REMAINS NONVERBAL AT THIS TIME, NOW OPENING EYES SPONTANEOUSLY; ABLE TO FOLLOW SIMPLE COMMANDS. PT HAS REMAINED IN SINUS RHYTHM WITH FREQUENT PVC, HR 60-80'S. RESPIRATORY FUNCTION GREATLY IMPROVED AND ON ROOM AIR. ABD DISTENSION IMPROVED, BOWEL TONES ACTIVE, LARGE FIRM BM REMOVED VIA DIGITAL DISIMPACTION. FOSTER CATH IN PLACE DRAINING YELLOW URINE OUTPUT ANYWHERE FROM LOW TEENS TO 30;S, CONTINUE TO MONITOR HOURLY OUTPUT. SKIN TEARS REMAIN UNCHANGED. LR INFUSING AT 125 ML/HR.
--- NOTE | 2018-06-28 06:49 | NUR ---
CRITICAL LAB VALUES REPORTED FOR HEMOGLOBIN OF 6.5 [address] SCHOFIELD INFORMED OF VALUES. ORDER RC'D FOR TYPE AND CROSS FOR 2 UNITS PRBC AND 20 MEQ POTASSIUM IV, READ BACK AND VERIFIED.
--- NOTE | 2018-06-28 08:05 | NUR ---
PT RESTING QUIETLY IN BED. VITALS WNL, PT YULIANA ROOM AIR WITH 95% SAT. PT OPENS EYES WHEN REPOSITONED TO LEFT SIDE FROM RIGHT SIDE.
--- NOTE | 2018-06-28 08:50 | NUR ---
20 G IV STARTED IN PT LEFT HAND BY STUDENT NURSE JEAN CLAUDE, WITH STAND BY ASSIST FROM RN TERESA. PT YULIANA WELL.
--- NOTE | 2018-06-28 09:45 | NUR ---
ASSESSED PT THIS MORNING. PT RESPONED TO PAIN FROM LAB DRAW AND NEW IV START. PT'S LUNG SOUNDS ARE CLEAR IN THE BASES AND SOUND MOIST IN THE UPPER PORTIONS. PT HAS A MOIST COUGH BUT IS UNPRODUCTIVE. PT'S SKIN IS FRAGILE AND EASILY BRIUSED, WITH CAP REFILL LESS THAN 3 SECONDS. PT OPENS EYES WHEN SPOKEN TO AND MOVES ARMS SPONTANEOUSLY. PT IS REPOSITIONED IN BED Q2 HOURS. PT IS REFUSING ORAL CARE AND IS RESTING AT THIS TIME.
--- NOTE | 2018-06-28 10:19 | NUR ---
PT REPOSITIONED TO BACK WITH HIPS FLOATED ON TWO PILLOWS.
--- NOTE | 2018-06-28 11:22 | NUR ---
UNIT ONE OF BLOOD COMPLETED. PT APPEARS TO BE RESTING QUIETLY, NO SIGNIFICANT CHANGE IN WOB OR VITAL SIGNS.
--- NOTE | 2018-06-28 12:30 | NUR ---
FLEETS OIL ENEMA GIVEN.
--- NOTE | 2018-06-28 12:46 | NUR ---
MOVED PT FROM LEFT TO RIGHT SIDE, CHANGED OUT DRAW SHEET, BLANKETS, AND DEPENDS. PERFORMED ADL'S AND ADMINISTED FLEETS OIL ENEMA. PT TOLERATED WELL.
--- NOTE | 2018-06-28 14:10 | NUR ---
PT REPOSITIONED TO LEFT SIDE WITH SUPPORT BY PILLOWS.
--- NOTE | 2018-06-28 14:11 | NUR ---
SECOND UNIT OF BLOOD COMPLETED. PT SHOWS NO SIGNS OF INCREASED WOB, VITAL SIGNS REMAIN STABLE.
--- NOTE | 2018-06-28 15:56 | NUR ---
PT REPOSITIONED IN BED WITH PILLOWS UNDER BOTH HIPS.
--- NOTE | 2018-06-28 18:24 | NUR ---
PT TRANSFERED WITH ALL PERSONAL BELONGINGS TO ROOM 121. REPORT GIVEN TO PRODUCE ASSOCIATE WADE. PT FAMILY IS AWARE OF PT TRANSFER.
--- NOTE | 2018-06-28 18:25 | NUR ---
PT ARRIVES TO ROOM 121. PT ALERT TO VOICE, CONFUSED AT BASELINE. BEDSIDE REPORT PER ENY FINN. PT APPEARS TO BE IN NO ACUTE DISTRESS. IVF INFUSING. VSS. CALL LIGHT AND H20 IN REACH.
--- NOTE | 2018-06-28 19:30 | NUR ---
REPORT RECEIVED, PT RESTING IN BED, IV FLUIDS INFUSING PER EMAR WNL, PT NONVERBAL, OCCASIONALLY OPENING EYES, FOSTER CATH DRAINING WNL, NO REQUESTS AT THIS TIME, NO SIGNS OF DISCOMFORT OR AGITATION, CALL LIGHT WITHIN REACH. FALL PRECAUTIONS IN PLACE.
--- NOTE | 2018-06-28 20:37 | NUR ---
SCHEDULED MEDSD GIVEN, ASSESSMENT COMPLETE, PT OPENING HIS EYES SCANNING THE ROOM HOWEVER REMAINS NONVERBAL, UNABLE TO ASSESS ORIENTATION, PT HAS A WEAK COUGH, UPPER AIRWAY CONGESTION/CRACKLES NOTED, LS CLEAR IN UPPER BILAT LOBES, DIMINISHED BILATERAL LOWER LOBES, PT'S SKIN FRAGILE, VARIOUS RED ABRASIONS AND SORES ON ARMS, SKIN TEAR DRESSING NOTED ON PT'S RIGHT ARM, ALL IV'S FLUSH WELL, IV FLUIDS/ABX INFUSING PER EMAR WNL, FOSTER CATH DRAINING WNL. PT REPOSITIONED IN BED, NO REQUESTS AT THIS TIME, CALL LIGHT WITHIN REACH.
--- NOTE | 2018-06-28 22:13 | NUR ---
PT REPOSITIONED IN BED, SCHEDULED MEDS GIVEN, PT AWAKE, EYES OPEN, OCCASIONALLY HUMMING, NO SIGNS OF DISCOMFORT OR AGITATION, IV FLUIDS INFUSING PER EMAR WNL, CALL LIGHT WITHIN REACH. BED ALARM ON. FALL PRECAUTIONS IN PLACE. HEEL PROTECTORS ON.
--- NOTE | 2018-06-29 00:43 | NUR ---
PT REPOSITIONED IN BED, FLOATED IN BED, NO REQUESTS AT THIS TIME, PT DID RESPOND SAYING "UH HUH" WHEN ASKED IF HE WAS DOING OKAY, NO OTHER RESPONSE, CALL LIGHT WITHIN REACH. FALL PRECAUTIONS IN PLACE.
--- NOTE | 2018-06-29 00:43 | NUR ---
HELPED NEY VELASQUEZ REPOSITION PT IN BED. CALL LIGHT IN REACH.
--- NOTE | 2018-06-29 02:49 | NUR ---
PT REPOSITIONED IN BED, ASSESSMENT COMPLETE, PT AWAKE ON AND OFF, NOT RESPONSIVE TO VERBAL STIMULI BUT WAS RESPONSIVE TO TURNING, NO SIGNS OF DISCOMFORT OR DISTRESS, FOSTER CATH DRAINING WNL, IV FLUIDS INFUSING PER EMAR WNL. CALL LIGHT WITHIN REACH.
--- NOTE | 2018-06-29 05:31 | NUR ---
PT AWAKE, OCCASIONALLY OPENING EYES, PT NONVERBAL, MOVING ARMS AND LEGS OCCASIONALLY, VSS, PT REPOSITIONED IN BED, NO SIGNS OF RESTLESNESS OR DISCOMFORT, FOSTER CATH DRAINING WNL, IV FLUIDS INFUSING PER EMAR WNL. CALL LIGHT WITHIN REACH. FALL PRECAUTIONS IN PLACE.
--- NOTE | 2018-06-29 06:17 | NUR ---
PT NONVERBAL, UNABLE TO ASSESS ORIENTATION, SLEPT ON AND OFF THIS SHIFT, OCCASIONALLY OPENING EYES AND MOANING/HUMMING, PT IN NO APPARENT DISTRESS, RESTING IN BED, Q2 TURNS, NO BM THIS SHIFT, FOSTER CATH DRAINING WNL, IV FLUIDS INFUSING PER EMAR WNL. PT DID NOT LEAVE BED THIS SHIFT BUT WOULD REQUIRE JESSE IF NEEDED, LS CLEAR/DIMINISHED, PT DOES HAVE FREQUENT WEAK COUGH, UNABLE TO FOLLOW INSTRUCTIONS TO CDB, PT ALSO DENIES ORAL CARE, VSS, ON RA, AFEBRILE.
--- NOTE | 2018-06-29 07:33 | NUR ---
REPORT RECEIVED FROM DIRECTOR OF LABOR RELATIONS RN. PT IN BED ON RIGHT SIDE. LR AT 75 INFUSING. VISIBLES FROM NURSING STATION. PT APPEARS RELAXED.
--- NOTE | 2018-06-29 11:00 | NUR ---
BEDSIDE SWALLOW DONE. PATIENT ABLE TO SWALLOW 2 SPOON FULLS OF WATER WITHOUT COUGHING. PT USED STRAW TO DRINK WATER WITH OUT COUGHING. DIET ADVANCES TO PURED. ENSURE AND MASHED POTATOS ORDERED.
--- NOTE | 2018-06-29 11:31 | NUR ---
ROUNDED WITH DR SCHOFIELD, SON AT BEDSIDE. PLAN OF CARE DISCUSSED. QUESTIONS ANSWERED. NEW ORDERS RECEIVED.
--- NOTE | 2018-06-29 12:44 | NUR ---
PT REPOSITIONED. TO LEFT SIDE. VISIBLE FROM NURSING STATION. DRINK OF INSURE PROVIDED.
--- NOTE | 2018-06-29 13:34 | NUR ---
KRISTIN VELÁSQUEZ'Faheem PER DR AUSTIN.
--- NOTE | 2018-06-29 13:35 | NUR ---
ATTEMPTED SWALLOW EVALUATION; PT EXHIBITED S/S PAIN AND DISCOMFORT. NSG ALSO PRESENT IN THE ROOM AT THE TIME. PT ATTEMPTED PO MEDICATION CRUSHED IN PUDDING; PROFOUNDLY DELAYED SWALLOW EXHIBITED WITH DECREASED OROPHARYNGEAL SENSATION. 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
--- NOTE | 2018-06-29 15:07 | NUR ---
PT HAD OK DAY. TURN Q2H. SPEACH THERAPY IN TOMORROW FOR EVAL. PT ADVANCED TO PURRED FOODS. TYLENOL SUPP FOR PAIN GIVEN. SUPP FOR BM ADMINISTERED. KRISTIN VELÁSQUEZ'D AT 1330. PT DUE TO VOID. PT NON-VERBAL. LR AT 75. POTASSIUM INFUSING. IV SITES WNL. WEAK NONPRODUCTIVE COUGH PRESENT. ALLYVN TO COCCYX. SKIN TEAR TO RIGHT AC AND LEFT ARM. HEEL PROTECTORS.
--- NOTE | 2018-06-29 15:44 | NUR ---
1530: REPORT RECIEVED FOR KANDACE BREWSTER.
--- NOTE | 2018-06-29 15:45 | NUR ---
PT LYING IN BED AND WHEN ASKED IF HE IS DOING OK HE STATES "YES". HE APPEARS COMFORTABLE AT THIS TIME AND WAS RECENTLY TURNED TO HIS RIGHT SIDE WHERE OF WHICH HE IS LYING ON AND IS SUPPORTED WITH PILLOWS. PT HAS A MOIST SOUNDING OCC COUGH WHICH HE IS NOT BRINING ANYTHING UP. WILL CONTINUE TO MONITOR.
--- NOTE | 2018-06-29 15:54 | NUR ---
PT SITTING UP VERY HIGH IN HIS BED AND IS HAVING AN ENSURE AT THIS TIME WITH THE STATION MECHANIC HELPER HELPING HIM.
--- NOTE | 2018-06-29 17:15 | NUR ---
PT TURNED AND HAD A SMALL SOFT BM. PT WAS CLEANED UP AND NEW ATTENDS PLACE. PT DENIES PAIN AND STATES HE IS DOING "PRETTY GOOD". PT TOOK A SMALL DRINK OF ENSURE WHEN OFFERED.
--- NOTE | 2018-06-29 17:18 | NUR ---
DR SCHOFIELD INTO THE PT'S ROOM CHECKING UP ON HIM. HE IS AWARE THAT THE PT HAS NOT VOIDED SINCE HIS FOSTER WAS PULLED AT 1330.
--- NOTE | 2018-06-29 19:00 | NUR ---
THE NURSE AND I CHANGED HIM AND ALSO REPOSITIONED HIM.
--- NOTE | 2018-06-29 19:04 | NUR ---
PT TURNED AND REPOSITIONED IN THE BED. PT WAS INCONT OF STOOL AND HE WAS CLEANED AND CHANGED AT THIS TIME WELL.
--- NOTE | 2018-06-29 20:22 | NUR ---
REPORT RECEIVED, PT RESTING IN BED, NO NEEDS AT THIS TIME, CALL LIGHT WITHIN REACH, IV FLUIDS INFUSING PER EMAR WNL.
--- NOTE | 2018-06-29 21:00 | NUR ---
WITH THE HELP OF NEY MOSES WE GOT THE PT CHANGED AND A NEW GOWN DO TO INCONTINECE OF URINE. BEDSIDE TABLE AND CALL LIGHT IN REACH.
--- NOTE | 2018-06-29 21:55 | NUR ---
Patient was offered an ensure and he took three sips and was done for now.
--- NOTE | 2018-06-29 21:55 | NUR ---
PT ALERT, UNABLE TO ASSESS ORIENTATION, PT MOSTLY NONVERBAL OTHER THAN SOME SHORT PHRASES "YES, NO, HELLO", PT WAS GIVEN PO MEDS IN APPLE SAUCE, PT TOLERATED WELL, DRINKING ENSURE WELL WELL, ASPIRATION PRECAUTIONS IN PLACE. PT DID HAVE A SMALL SMEAR BM WELL WAS INCONTINENT OF A MODERATE VOID, WILL CONTINUE TO MONITOR URINATION, THIS RN PREVIOUSLY DISCUSSED WITH DR. SCHOFIELD THE PT'S LACK OF URINATION, PRIOR TO THE PT VOIDING DR. SCHOFIELD REQUESTED THAT THE PT BE STRAIGHT CATH'D IF THE PT DOES NOT URINATE AND TO MONITOR FOR URINARY RETENTION. DR. SCHOFIELD ALSO REQUESTED THAT A FOSTER CATHETER BE PLACED IF AFTER STRAIGHT CATHING THE PT CONTINUES TO BE UNABLE TO VOID. AT THIS TIME THE PT HAS VOIDED AND WILL CONTINUE TO MONITOR. PT REMOVED IV IN RIGHT HAND, TIP INTACT, LS CLEAR, WEAK COUGH REMAINS PRESENT, SKIN TEAR BANDAGES C/D/I, NEW ALLEVYN PLACED ON COCCYX WHEN PT WAS INCONTINENT. IV FLUIDS INFUSING PER EMAR WNL, FALL PRECAUTIONS IN PLACE.
--- NOTE | 2018-06-29 22:46 | NUR ---
PT NOTED TO BE RESTLESS PULLING ON ATTENDS, PT'S ATTENDS CHANGED, PT NOTED TO BE INCONTINENT OF SMALL AMOUNT OF URINE WELL SMEAR OF STOOL. ATTENDS CHANGED, REPOSITIONED IN BED, NO NEEDS AT THIS TIME, IV FLUIDS INFUSING PER EMAR WNLC, CALL LIGHT WITHIN REACH.
--- NOTE | 2018-06-29 22:57 | NUR ---
WITH THE HELP OF NEY VELASQUEZ WE CHANGED HIS ATTENDS INCONTINENT OF URINE AND A SMEAR OF BM. BEDSIDE TABLE AND CALL LIGHT IN REACH.
--- NOTE | 2018-06-29 23:15 | NUR ---
PT NOTED TO BE RESTLESS, ATTEMPTING TO GET OUT OF BED, PT UNABLE TO VERBALLY EXPRESS DESCRIBE DISCOMFORT, PULLING AT ATTENDS, PT BLADDER SCANNED, 232 MLS FOUND IN BLADDER, PT WAS ABLE TO NOD HEAD YES WHEN ASKED IF HE WAS IN PAIN, PT GIVEN PRN TYLENOL PER EMAR, PT TOLERATED PO MEDS IN APPLE SAUCE WITH ENSURE. ASPIRATION PRECAUTIONS USED, PT REMAINS RESTING IN BED, REPOSTIONED IN BED, CALL LIGHT WITHIN REACH, VISIBLE FROM NURSES STATION. IV FLUIDS INFUSING PER EMAR WNL.
--- NOTE | 2018-06-30 00:15 | NUR ---
NEW IV PLACED IN PT'S LEFT FOREARM, 22 G, BY JUNIOR PROGRAMMER ANALYST MAE RN, PT TOLERATED WELL, PT CONTINUES TO BE RESTLESS AND UNABLE TO CONSOLE AFTER PRN PAIN MEDICATION ADMINISTRATION, PT UNABLE TO DESCRIBE DISCOMFORT, JUNIOR PROGRAMMER ANALYST MAE NOTIFIED DR. SCHOFIELD, RECEIVED ORDER FOR HALDOL, SEE EMAR. PT RESTING IN BED, VSS, IV FLUIDS INFUSING PER EMAR WNL. VISIBLE FROM NURSES STATION. FALL PRECAUTIONS IN PLACE.
--- NOTE | 2018-06-30 01:02 | NUR ---
PT REMAINS TO BE RESTLESS, SWINGING ARMS AND GROANING, SHIFTING IN BED, PT GIVEN SECOND DOSE OF HALDOL PER ORDER DUE TO CONTINUED RESTLESNESS AFTER INITIAL DOSE, PT REMAINS IN BED, IV FLUIDS INFUSING PER EMAR WNL, FALL PRECAUTIONS IN PLACE.
--- NOTE | 2018-06-30 01:45 | NUR ---
PT RESTING IN BED, EYES CLOSED, BREATHS EVEN, UNLABORED, NO REQUESTS AT THIS TIME, IV FLUIDS INFUSING PER EMAR WNL. FALL PRECAUTIONS IN PLACE.
--- NOTE | 2018-06-30 02:53 | NUR ---
PT'S ATTENDS DRY, BLADDER SCAN COMPLETE, PT FOUND TO HAVE 344 MLS IN BLADDER PER BLADDER SCAN, WILL CONTINUE TO MONITOR.
--- NOTE | 2018-06-30 05:00 | NUR ---
PT ALERT, UNABLE TO ASSESS ORIENTATION, PT MOSTLY NONVERBAL, OCCASIONAL ONE WORD PHRASES, PT ABLE TO TAKE PO MEDS WITH APPLE SAUCE, TOLERATED WELL, ON RA, VSS, PT VOIDED X3 THIS SHIFT, BLADDER SCANS HAVE BEEN LESS THAN 350, PT INCONTINENT OF URINE, 2 VERY SMALL SMEARS OF STOOL NOTED BUT PT HAS NOT HAD FORMED BM THIS SHIFT, PT RECEIVED PRN TYLENOL FOR PAIN/ RESTLESNESS X1 THIS SHIFT, PT ALSO RECEIVED HALDOL THIS SHIFT DUE TO CONTINUED RESTLESNESS. Q2 TURNING, IV FLUIDS INFUSING PER EMAR WNL, HEEL PROTECTORS ON.
--- NOTE | 2018-06-30 06:54 | NUR ---
PT REFUSING TO TAKE MORNING MEDICATION, PT REFUSING ALL PO INTAKE, NO REQUESTS AT THIS TIME, NO SIGNS OF DISTRESS OR DISCOMFORT, IV FLUIDS INFUSING PER EMAR WNL, FALL PRECAUTIONS IN PLACE. REPOSITIONED IN BED.
--- NOTE | 2018-06-30 07:30 | NUR ---
PATIENT REPORT RECEIVED FROM EVA BREWSTER, PATIENT IS RESTING ON RA WITH NO S/S OF RESPIRATORY DISTRESS. BED RAILS ARE UP AND ALARM IS ON.
--- NOTE | 2018-06-30 08:28 | NUR ---
PATIENT RESTING IN BED. PATIENT FED. PATIENT REPOSITIONED ON HIS LEFT SIDE. TWO PERSON ASSISTING. CALL LIGHT WITHIN REACH. NO OTHER NEEDS AT THIS TIME
--- NOTE | 2018-06-30 08:45 | NUR ---
PATIENT OPENED HIS EYE IN RESPONSE TO HIS NAME BUT REFUSED TO TAKE PO MEDICATIONS AT THIS TIME. WILL CONTINUE TO TRY.
--- NOTE | 2018-06-30 09:00 | NUR ---
CHARGE ROUNDING DONE. PATIENT APPEARS TO BE SLEEPING SOUNDLY. RR 20. PATIENT FAMILY AT BEDSIDE.
--- NOTE | 2018-06-30 09:36 | NUR ---
PATIENT HAD A SMALL BM AND A VERY LARGE WET ATTEND, COCCYCX A LITTLE RED, BARRIER CREAM APPLIED BY THE [employer].
--- NOTE | 2018-06-30 09:41 | NUR ---
PATIENT RESTING IN BED. PATIENT'S DEPEND CHANGED. PATIENT REPOSITIONED ON HIS RIGHT SIDE. TWO PERSON ASSISTING. PATIENT USING A CLEAN GOWN. FACE AND HANDS CLEANED. VITAL SIGNS DONE. CALL LIGHT WITHIN REACH. NO OTHER NEEDS AT THIS TIME
--- NOTE | 2018-06-30 10:14 | NUR ---
DOCTOR KANWAL IN TO SEE THE PATIENT AT THIS TIME. HE IS CALLING THE SON TO UPDATE HIM AT THIS TIME
--- NOTE | 2018-06-30 11:25 | NUR ---
PATIENT STILL REFUSING TO OPEN HIS MOUTH TO SWALLOW MEDICATION AT THIS TIME, ATTEMPTED TO SIT HIM UP IN BED AND GIVEN HIM A DRINK, GIVE HIM SOME APPLESAUCE, NO RESPONSE FROM THE PATIENT. IV KCL HUNG AND RUNNING.
--- NOTE | 2018-06-30 13:23 | NUR ---
PATIENT RESTING IN BED. PATIENT'S DEPEND CHANGED. PATIENT REPOSITIONED. TWO PERSON ASSISTING. VITAL SIGNS AND I&O DONE. PATIENT REFUSED TO TAKE LUNCH. LOW INTAKE. RN NOTIFIED. CALL LIGHT WITHIN REACH. NO OTHER NEEDS AT THIS TIME.
--- NOTE | 2018-06-30 14:00 | NUR ---
PATIENT'S SON UPDATED ON PATIENT STAUS, HE ATTEMPTED TO GIVE THE PATIENT HIS ORAL MEDICATIONS WITH APPLESAUCE OR ENSURE AND WAS ONLY SUCCESSFUL WITH ONE TABLET. PATIENT STILL IS NOT OPENING EYES TO SOUND OR FOLLOWING COMMANDS.
--- NOTE | 2018-06-30 15:32 | NUR ---
PATIENT RESTING IN BED. SON IN ROOM. PATIENT'S DEPEND CHANGED. PATIENT REPOSITIONED ON HIS LEFT SIDE. CALL LIGHT WITHIN REACH. NO OTHER NEEDS AT THIS TIME
--- NOTE | 2018-06-30 17:46 | NUR ---
PATIENT RESTING IN BED. VITAL SIGNS AND I&O DONE. PATIENT REFUSED TO EAT AND DRINK. RN NOTIFIED. CALL LIGHT WITHIN REACH. NO OTHER NEEDS AT THIS TIME
--- NOTE | 2018-06-30 18:14 | NUR ---
PATIENT TURNED TO THE RIGHT LATERAL SIDE AFTER ATTENDS WERE CHANGED AND DANG CARE WAS DONE. ALLEVYN DRESSING TO PATIENT'S COCCYX INTACT
--- NOTE | 2018-06-30 19:31 | NUR ---
REPORT RECEIVED, PT RESTING IN BED, EYES CLOSED, BREATHS EVEN, UNLABORED, NO SIGNS OF DISTRESS OR DISCOMFORT, IV FLUIDS INFUSING PER EMAR WNL, FAMILY AT BEDSIDE, CALL LIGHT WITHIN REACH.
--- NOTE | 2018-06-30 21:00 | NUR ---
IN ROOM TO ADMIN EVENING MEDS, PT REFUSING TO TAKE PO MEDS, PT PUSHING AWAY MEDICATIONS AND ENSURE, WILL NOT CLOSE MOUTH, PO MEDS NOT GIVEN, DR. ANDRADE NOTIFIED, AND RECEIVED ORDER TO CHANGE PO PROTONIX TO IV, NO OTHER ORDERS, ASSESSMENT COMPLETE, PT'S LS CLEAR, DIMINISHED BASES, ON RA, PT NONVERBAL, WILL OCCASIONALLY OPEN EYES AND MOVE HIS OWN ARMS BUT WILL NOT COMMUNICATE, REASSURANCE PROVIDED, PT REPOSITIONED IN BED, PT INCONTINENT OF LARGE VOID, ATTENDS CHANGED, BANDAGES ON SKIN TEARS REMAIN C/D/I, NEW ALLEVYN PLACED ON COCCYX, BLANCHING WELL, NO OPEN AREAS, NO SIGNS OF DISTRESS OR DISCOMFORT, FALL PRECAUTIONS IN PLACE, IV FLUIDS INFUSING PER EMAR WNL.
--- NOTE | 2018-06-30 23:18 | NUR ---
PT RESTING IN BED, EYES CLOSED, BREATHS EVEN, UNLABORED, NO REQUESTS AT THIS TIME, CALL LIGHT WITHIN REACH. IV FLUIDS INFUSING PER EMAR WNL. NO SIGNS OF DISCOMFORT OR DISTRESS
--- NOTE | 2018-07-01 00:26 | NUR ---
PT REPOSITIONED IN BED, PT INCONTINENT OF URINE, ATTENDS CHANGED, PT DID AWAKE WITH TURNING AND REPOSITIONING, NO SIGNS OF DISTRESS OR DISCOMFORT, PT QUICKLY WENT BACK TO SLEEP AFTER TURNING, IV FLUIDS INFUSING PER EMAR WNL, CALL LIGHT WITHIN REACH. FALL PRECAUTIONS IN PLACE.
--- NOTE | 2018-07-01 00:27 | NUR ---
WITH THE HELP OF NEY VELASQUEZ WE CHANGED PT'S ATTEND AND REPOSITIONED HI IN BED. BEDSIDE TABLE AND CALL LIGHT IN REACH.
--- NOTE | 2018-07-01 02:27 | NUR ---
PT RESTING IN BED, EYES CLOSED, BREATHS EVEN, UNLABORED, PT DOES WAKE TO VERBAL STIMULI AND GENTLE TOUCH, OCCASIONALLY OPENING EYES, BUT REMAINS NONVERBAL, ASSESSMENT COMPLETE. LS CLEAR, IV FLUIDS INFUSING PER EMAR WNL, NO SIGNS OF DISCOMFORT OR RESTLESNESS. FALL PRECAUTIONS IN PLACE.
--- NOTE | 2018-07-01 04:34 | NUR ---
PT REPOSITIONED, INCONTINENT OF URINE AND SMEAR OF STOOL, PT MOANING WHILE TURNING HOWEVER QUICKLY WENT BACK TO RESTING QUIETLY AFTER BEING REPOSITIONED, NO SIGNS OF DISTRESS OR DISCOMFORT AT THIS TIME, IV FLUIDS INFUSING PER EMAR WNL, FALL PRECAUTIONS IN PLACE.
--- NOTE | 2018-07-01 04:39 | NUR ---
PT NONVERBAL THIS SHIFT, UNABLE TO ASSESS ORIENTATION, OCCASIONAL MOAN WHILE TURNING, PT WILL WAKE TO TURNING AND GENTLE TOUCH, ON RA, VSS, NO SIGNS OF DISCOMFORT OR RESTLESNESS THIS SHIFT, PT INCONTINENT OF URINE AND STOOL THIS SHIFT, ATTENDS IN PLACE, BEDBOUND, Q2 TURNING, NEW ALLEVYN ON COCCYX THIS SHIFT, PT REFUSED TO TAKE ANYTHING PO THIS SHIFT INCLUDING MEDICATIONS OR FLUIDS. PT ALSO RESISTING TO ORAL CARE. IV FLUIDS INFUSING PER EMAR WNL,
--- NOTE | 2018-07-01 06:57 | NUR ---
PT NOTED TO BE AGITATED, SWINGING ARMS AT STAFF, GRABBING STAFF WITH FORCE, PT NOT FOLLOWING DIRECTIONS, DR. ANDRADE CALLED AND NOTIFIED THAT THE HALDOL DOSE THAT IS IN EMAR IS NOT AVAILABLE IN [facility], NEW ORDER FOR ONE TIME DOSE OF IV HALDOL, NO OTHER NEW ORDERS, DR. ANDRADE AWARE OF PT'S AGITATION WELL PT BEING UNABLE TO TAKE PO OR FOLLOW COMMANDS. ORDERED HALDOL GIVEN TO PT, PT RESTING IN BED, IV FLUIDS INFUSING PER EMAR WNL, BREATHS EVEN, UNLABORED. FALL PRECAUTIONS IN PLACE.
--- NOTE | 2018-07-01 07:56 | NUR ---
Pt sleeping, respirations even and non labored. Pt appears without distress noted. Personal supplies and call light within reach. No needs at this time. Call light within reach.
--- NOTE | 2018-07-01 08:31 | NUR ---
PATIENT IS IN BED, PATIENT IS NOT ABLE TO WAKE UP AND EAT AT THE MOMENT, WILL RECHECK WITH NURSE
--- NOTE | 2018-07-01 09:08 | NUR ---
Pt took a bite of applesauce this am with his assessment. Pt unable to swallow much beyond small bites of very soft foods. Pt is combative at times. Close to RN station. Bed alarm intact. Pt does not verbally respond to my questions, per report pt only respnds verbally with short, simple responses such as "yes, no". Pt flacc scale is 0/10. No notable distress. Call light within reach.
--- NOTE | 2018-07-01 11:25 | NUR ---
Pt resting in bed, eyes closed, resp even and non labored. Pt repositioned for pressure relief. Personal supplies and call light within reach.
--- NOTE | 2018-07-01 11:53 | NUR ---
Dr. Lozano aware of critical sodium of 108 and glucose of 990. Lab is to redraw per doc request.
--- NOTE | 2018-07-01 13:48 | NUR ---
PATIENT DID NOT WANT THIS CNA2 TO PUT CUFF FOR BP ON HIM, THIS BILL RECAPITULATION CLERK GOT IT ON AFTER TAKING TIME TI TALK TO PATIENT AND CALM HIM DOWN THIS BILL RECAPITULATION CLERK WAS ABLE TO GET BP AND PULSE RATE, PATIENT WAS SWINGING HIS ARM TRYING TO HIT THIS CNA2 REPORTED TO NURSE NOT ALL VITAL SIGNS WERE GOTTEN
[2018-07-01] MEDS ORDERED: DOXYCYCLIN25 MG/5 ML PO (14:11)
[2018-07-01] MEDS ORDERED: OMEPRAZOLE20 MG PO (14:38)
--- NOTE | 2018-07-01 15:36 | NUR ---
IV MED HUNG. IV PATENT. pt RESTING WITH EYES CLOSED, RESPIRATIONS REGULAR. BED ALARM ON.
--- NOTE | 2018-07-01 16:33 | NUR ---
Pt sleeping at this time, respirations are even and non labored. Pt has no distress noted. Personal supplies and call light within reach. No needs at this time.
== END 2018-07-01 18:05 | DRG 871 ==
LOC: ED 04:20 → CCU 04:21 → MS 06-28 18:15
PROVIDERS: ADMIT Student in an Organized Health Care Education/Training Program
DX: A41.9 Sepsis, unspecified organism (principal); J69.0 Pneumonitis due to inhalation of food and vomit; N17.9 Acute kidney failure, unspecified; K92.2 Gastrointestinal hemorrhage, unspecified; D62 Acute posthemorrhagic anemia; R65.20 Severe sepsis without septic shock; K59.00 Constipation, unspecified; M10.9 Gout, unspecified; H54.7 Unspecified visual loss; N40.0 Benign prostatic hyperplasia without lower urinary tract symptoms; I12.9 Hypertensive chronic kidney disease with stage 1 through stage 4 chronic kidney disease, or unspecified chronic kidney disease; N18.3 Chronic kidney disease, stage 3 (moderate); E03.9 Hypothyroidism, unspecified; F03.90 Unspecified dementia, unspecified severity, without behavioral disturbance, psychotic disturbance, mood disturbance, and anxiety; Z66 Do not resuscitate; Z74.01 Bed confinement status; Z79.899 Other long term (current) drug therapy; Z88.8 Allergy status to other drugs, medicaments and biological substances
CPT/HCPCS: 31720; 36415; 51702; 71045; 74018; 80048; 80053; 81001; 83605; 83735; 83880; 84100; 84484; 85007; 85025; 85610; 85730; 86850; 86900; 86901; 86920; 87502; 93005; 93010; 94640; 96368; 97163; 97165; 99291; 99292; C9113; J0456; J0692; J1630; J1650; J1956; J3370; J3480; J7030; J7040; J7060; J7120; P9016

== ENCOUNTER 2018-07-19 14:20 | Emergency (ER) | payer MEDICARE, OTHER ==
[~2018-07-19] VITALS: Ht 175.3 cm; Wt 62.0 kg
[~2018-07-19 14:20] MED LIST changes: +DOXYCYCLIN25 MG/5 ML PO; +ENEMA133 M1 PR; +FLOMAX0.4 MG PO; +LACTULOSE10 GM/15 M PO; +MAGNESIUM CITR296 ML PO; +SENOKOTXTRA17.2 MG PO; +SIMVASTATIN20 MG PO
--- OUTSIDE RECORDS SUMMARY | 2018-07-19 14:26 | XMS ---
PreManage Notification: PIERRE QUINONES Security Learning Administrator Events No recent Security Events currently on file CRITERIA MET - [facility] - 2 Visits in 30 Days CARE PROVIDERS GERMAINE MADRID Physician 01/11/2018-Current PHONE: [phone] Keshia Oh Neurophysiology Tech/Quality Assurance Practice Manager 04/14/2018-Current PHONE: [phone] Keshia Oh Primary Care 04/14/2018-Current PHONE: [phone] Germaine Bowen [facility] PHONE: Unknown [facility]ita has no Care Guidelines for this patient. Andrea VISIT COUNT (12 MO.) 5 ONELIA [facility] TOTAL 5 NOTE: Visits indicate total known visits. ED/UCC VISIT TRACKING (12 MO.) 07/19/2018 14:24 [facility] [place] TYPE: Emergency COMPLAINT: - WEAKNESS, POSSIBLE DEHYDRATION 06/27/2018 04:20 [facility] [place] TYPE: Emergency COMPLAINT: - CONSTIPATION 04/27/2018 05:15 [facility] [place] TYPE: Emergency COMPLAINT: - VOMITING BLOOD 03/15/2018 12:57 [facility] [place] TYPE: Emergency COMPLAINT: - VOMITING,DIARRHEA 12/31/2017 09:40 [facility] [place] TYPE: Emergency COMPLAINT: - TROUBLE BREATHING INPATIENT VISIT TRACKING (12 MO.) 06/29/2018 09:21 [facility] TYPE: Medical Surgical COMPLAINT: - LEFT LOWER LOBE PNEUMONIA DIAGNOSES: - Chronic kidney disease, stage 3 (moderate) - Acute kidney failure, unspecified - Gout, unspecified - Hypothyroidism, unspecified - Hypertensive chronic kidney disease with stage 1 through stage 4 chronic kidney disease, or unspecified chronic kidney disease - Acute posthemorrhagic anemia - Unspecified visual loss - Severe sepsis without septic shock - Chronic kidney disease, stage 3 (moderate) - Bed confinement status - Pneumonitis due to inhalation of food and vomit - Allergy status to other drugs, medicaments and biological substances status - Unspecified dementia without behavioral disturbance - Gastrointestinal hemorrhage, unspecified - Constipation, unspecified - Hypothyroidism, unspecified - Severe sepsis without septic shock - Acute kidney failure, unspecified - Unspecified visual loss - Constipation, unspecified - Do not resuscitate - Allergy status to other drugs, medicaments and biological substances status - Unspecified dementia without behavioral disturbance - Gout, unspecified - Pneumonitis due to inhalation of food and vomit - Benign prostatic hyperplasia without lower urinary tract symptoms - Other termite technician (current) drug therapy - Sepsis, unspecified organism - Hypertensive chronic kidney disease with stage 1 through stage 4 chronic kidney disease, or unspecified chronic kidney disease - Acute posthemorrhagic anemia - Do not resuscitate - Benign prostatic hyperplasia without lower urinary tract symptoms - Other termite technician (current) drug therapy - Bed confinement status - Gastrointestinal hemorrhage, unspecified 04/27/2018 05:16 [facility] [place] TYPE: Observation COMPLAINT: - ABD PAIN/LEUKOCYTOSIS DIAGNOSES: - Unspecified dementia without behavioral disturbance - Personal history of transient ischemic attack (TIA), and cerebral infarction without residual deficits - Old myocardial infarction - Unspecified hearing loss, unspecified ear - Essential (primary) hypertension - Unspecified visual loss - Hypothyroidism, unspecified - Unspecified hemorrhoids - Gout, unspecified - Elevated white blood cell count, unspecified - Do not resuscitate - Benign prostatic hyperplasia without lower urinary tract symptoms - Other care home (current) drug therapy - Personal history of nicotine dependence - Constipation, unspecified - Vomiting, unspecified - Allergy status to narcotic agent status 03/15/2018 12:58 [facility] [place] TYPE: Observation COMPLAINT: - BOWEL INFARCTION DIAGNOSES: - Acute infarction of large intestine, extent unspecified - Acute posthemorrhagic anemia - Old myocardial infarction - Other termite technician (current) drug therapy - Vomiting, unspecified - Unspecified hearing loss, unspecified ear - Unspecified dementia without behavioral disturbance - Unspecified visual loss - Acute kidney failure, unspecified - Pneumonia, unspecified organism - Do not resuscitate - Chronic kidney disease, stage 3 (moderate) - Dysphagia, oropharyngeal phase - Urgency of urination - Benign prostatic hyperplasia with lower urinary tract symptoms - Personal history of transient ischemic attack (TIA), and cerebral infarction without residual deficits - Hyperuricemia without signs of inflammatory arthritis and tophaceous disease - Personal history of nicotine dependence - Hypertensive chronic kidney disease with stage 1 through stage 4 chronic kidney disease, or unspecified chronic kidney disease - Allergy status to other drugs, medicaments and biological substances status - Unspecified hemorrhoids - Chronic pain syndrome - Hyperlipidemia, unspecified - Hypothyroidism, unspecified 01/04/2018 11:23 [facility] [place] TYPE: Medical Surgical COMPLAINT: - PNEUMONIA DIAGNOSES: - Other malaise - Urinary tract infection, site not specified - Unspecified atrial fibrillation - Urinary tract infection, site not specified - Pneumonitis due to inhalation of food and vomit - Do not resuscitate - Unspecified visual loss - Dementia in other diseases classified elsewhere without behavioral disturbance - Atherosclerotic heart disease of [place] coronary artery without angina pectoris - Unspecified visual loss - Unspecified hearing loss, unspecified ear - Retention of urine, unspecified - Dementia in other diseases classified elsewhere without behavioral disturbance - Hypothyroidism, unspecified - Unspecified atrial fibrillation - Other malaise - Pneumonia, unspecified organism - superintendent container terminal (current) use of aspirin - Do not resuscitate - long-term (current) use of aspirin - Atherosclerotic heart disease of [place] coronary artery without angina pectoris - Other frontotemporal dementia - Unspecified hearing loss, unspecified ear - Pneumonitis due to inhalation of food and vomit - Other frontotemporal dementia - Hypothyroidism, unspecified - Retention of urine, unspecified 12/31/2017 12:16 ON[facility] [place] TYPE: Medical Surgical COMPLAINT: - PNEUMONIA DIAGNOSES: - Pneumonitis due to inhalation of food and vomit - Hypothyroidism, unspecified - Anemia, unspecified - Pneumonia, unspecified organism - Do not resuscitate - Personal history of nicotine dependence - Old myocardial infarction - Retention of urine, unspecified - Do not resuscitate - Hypomagnesemia - Anemia, unspecified - Hypothyroidism, unspecified - Atherosclerotic heart disease of [place] coronary artery without angina pectoris - Personal history of nicotine dependence - Encounter for immunization - Personal history of transient ischemic attack (TIA), and cerebral infarction without residual deficits - Urinary tract infection, site not specified - Unspecified dementia without behavioral disturbance - Atherosclerotic heart disease of [place] coronary artery without angina pectoris - Unspecified atrial fibrillation - Urinary tract infection, site not specified - Pneumonitis due to inhalation of food and vomit - Old myocardial infarction - Unspecified dementia without behavioral disturbance - Hypomagnesemia - Unspecified atrial fibrillation - Metabolic encephalopathy - Personal history of transient ischemic attack (TIA), and cerebral infarction without residual deficits - Retention of urine, unspecified - Metabolic encephalopathy [email or web address]
== END 2018-07-19 19:40 | disposition home or self-care (01) ==
LOC: ED 14:20
DX: R53.83 Other fatigue (principal); K59.00 Constipation, unspecified; E87.6 Hypokalemia; E03.9 Hypothyroidism, unspecified; I25.2 Old myocardial infarction; I10 Essential (primary) hypertension; Z86.73 Personal history of transient ischemic attack (TIA), and cerebral infarction without residual deficits; Z87.891 Personal history of nicotine dependence; Z88.8 Allergy status to other drugs, medicaments and biological substances; Z79.899 Other long term (current) drug therapy
CPT/HCPCS: 51701; 71045; 80053; 81001; 84484; 85025; 99283-25